=== PATIENT | female | born 1940 | race Caucasian/White ===

== ENCOUNTER 2016-09-25 19:06 | Emergency (ER) | payer OTHER ==
[2016-09-25] MEDS ORDERED: ACETAMINOPH W/CODEINE #3 TAB UD As Ordered ONE ×2 (22:38)
[2016-09-25 22:56] LABS: BASO % 0.4 % (0.0-1.0); EOS # 0.1 K/mm3 (0.0-0.50); EOS % 1.2 % (0.0-3.0); LARGE UNSTAINED CELL # 0.1 K/mm3 (0.0-0.4); LARGE UNSTAINED CELL % 1.3 % (0.0-4.0); LYMPH # 1.9 K/mm3 (1.5-4.5); LYMPH % 30.6 % (24.0-44.0); MEAN CORPUSCULAR HEMOGLOBIN 30.6 pg (27.0-33.0); MEAN CORPUSCULAR HGB CONC 34.8 g/dl (32.0-36.5); MONO # 0.3 K/mm3 (0.0-0.8); NEUTROPHILS # 3.9 K/mm3 (1.8-7.7); NEUTROPHILS % 62.4 % (36.0-66.0); PLATELET COUNT, AUTOMATED 131 k/mm3 (150-450); RED CELL DISTRIBUTION WIDTH 11.9 % (11.5-14.5); WHITE BLOOD COUNT 6.2 K/mm3 (4.0-10.0)
[2016-09-25 23:25] LABS: ANION GAP 9 MEQ/L (8-16); BLOOD UREA NITROGEN 16 MG/DL (7-18); CALCIUM LEVEL 9.6 MG/DL (8.8-10.2); CARBON DIOXIDE LEVEL 25 MEQ/L (21-32); CHLORIDE LEVEL 111 MEQ/L (98-107); CREATININE FOR GFR 0.97 MG/DL (0.55-1.02); GLOMERULAR FILTRATION RATE 59.3 (>39); GLUCOSE, FASTING 89 MG/DL (83-110); POTASSIUM SERUM 3.8 MEQ/L (3.5-5.1); SODIUM LEVEL 145 MEQ/L (136-145)
--- NOTE | 2016-09-25 23:42 | REP ---
Clinical: Pain. Technique: Internal rotation, external rotation, and Y view of the right shoulder. Findings: Spurring at the acromioclavicular joint as well as along the inferior margin of the humeral head is appreciated with subtle cortical irregularities and blunting to the glenoid rim and greater tuberosity of the humeral head. No acute fracture or dislocation. Surrounding soft tissues are normal. No periarticular calcifications are identified. Subacromial space is within normal limits. Impression: Mild osteoarthritic degenerative changes. Signed by Gianfranco Anand MD 09/25/2016 11:34 P
--- NOTE | 2016-09-26 00:15 | EDDOCDS ---
Physician Documentation [facility] Name: Graciela Suarez Age: 76 yrs Sex: Female : 1940 Arrival Date: 09/25/2016 Time: 19:06 Bed Private MD: Johnnie Sanchez Disposition: 09/25/16 23:58 Discharged to Home/Self Care. Impression: Osteoarthritis, unspecified site - RIGHT SHOULDER, Unspecified injury of muscle and tendon of front wall of thorax. - Condition is Stable. - Discharge Instructions: Arthritis, Nonspecific, Muscle Strain. - Prescriptions for Tylenol- Codeine #3 300-30 mg Oral Tablet - take 1 tablet by ORAL route every 6 hours As needed MDD: 4 tabs; 10 tablet. - Medication Reconciliation, Local Pharmacy Hours form. - Follow up: Johnnie Sanchez; When: Tomorrow; Reason: Recheck today's complaints, Continuance of care. - Problem is new. - Symptoms have improved. - Notes: USE MEDICATION INSTRUTCED, FOLLOW UP WITH YOUR DOCTOR TOMORROW, RETURN TO THE ER IF THE SYMPTOMS WORSEN OR BECOME CONCERNING Historical: - Allergies: no known allergies; - Home Meds: 1. aspirin 81 mg Oral chew 1 tab once daily 2. atorvastatin 10 mg oral tab 1 tab once daily 3. buspirone 10 mg Oral tab 3 times per day 4. clonazepam 0.5 mg Oral TbDL 1 tab 2 times per day 5. donepezil 10 mg oral tab 2 tab once daily 6. levothyroxine 75 mcg Oral tab once daily 7. memantine 5 mg oral tab three times a day 8. montelukast 10 mg oral tab 1 tab once daily - PMHx: Depression; Thyroid problem; - PSHx: Adenoidectomy; Hammer toe repair left foot; Tonsillectomy; Bunion Surgery; - Social history: Smoking status: Patient states was never smoker of tobacco. No barriers to communication noted, The patient speaks fluent Korean. - Family history: Not pertinent. - : The pt / caregiver states he / she is not on anticoagulants. Home medication list is obtained from the patient. - Exposure Risk Screening:: None identified. Vital Signs: 09/25 19:09 BP 129 / 74; Pulse 64; Resp 18 S; Pulse Ox 99% on R/A; Weight 63.5 kg / 139.99 lbs (R); gr2 Height 5 ft. 1 in. (154.94 cm) (R); Pain 7/10; 09/26 00:12 BP 126 / 71; Pulse 62; Resp 22; Temp 97.0(O); Pulse Ox 97% on R/A; Pain 0/10; rw1 09/25 19:09 Body Mass Index 26.45 (63.50 kg, 154.94 cm) gr2 09/25 19:09 UNABLE TO GET A TEMP gr2 MDM: 22:11 [facility] Payment Agreement was scanned into [employer] and attached to record. gjb 22:11 Financial registration complete. gjb 22:16 ECG WITH READING ER PHYS+CARDIAG ordered. EDMS 22:37 Acetaminophen-Codeine 300 mg-30 mg 2 tabs PO once ordered. ck7 22:38 Shoulder, Complete Ordered. EDMS 22:40 CBC with Diff Ordered. EDMS 22:40 MED Profile Ordered. EDMS 22:40 Cardiac Marker Panel Ordered. EDMS 23:27 CBC with Diff Reviewed. ck7 23:27 MED Profile Reviewed. ck7 23:28 Cardiac Marker Panel Reviewed. ck7 23:31 MED Profile Reviewed. ck7 23:31 Cardiac Marker Panel Reviewed. ck7 Administered Medications: 22:41 Drug: Acetaminophen-Codeine 2 tabs [acetaminophen 300 mg-codeine 30 mg tablet (2 tabs)] ttb Route: PO; 09/26 00:12 Follow up: Response: Pain is decreased rw1 Signatures: Dispatcher [employer] EDMS Peterson Starr LPN LPN rw1 Kandice Aly RN RN rs3 Long Lozano RPA-C RPA-Cck7 Nicole Rg gjb Helene Guthrie RN ttb The chart was reviewed and I authenticate all verbal orders and agree with the evaluation and treatment provided.Attachments: 09/25 22:11 [facility] Payment Agreement gjb MTDD
--- NOTE | 2016-09-26 00:15 | EDDOCDS ---
Nurse's Notes [facility] Name: Graciela Suarez Age: 76 yrs Sex: Female : 1940 Arrival Date: 09/25/2016 Time: 19:06 Bed PR Private MD: Johnnie Sanchez Diagnosis: Osteoarthritis, unspecified site-RIGHT SHOULDER;Unspecified injury of muscle and tendon of front wall of thorax Presentation: 09/25 19:20 Presenting complaint: Patient states: Right shoulder/arm pain 5 months. right breast rs3 pain since this morning. unable to lift R arm. Adult Sepsis Screening: The patient does not have new or worsening altered mentation. Patient's respiratory rate is less than 22. Systolic blood pressure is greater than 100. Patient has a qSOFA score of 0- Negative Sepsis Screen. Suicide/Homicide risk assessment- the patient denies having any suicidal and/or homicidal ideations and does not present with any other emotional, behavioral or mental health complaints. 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 Transition of care: patient was not received from another setting of care. 19:20 Acuity: HENRY Level 4 rs3 19:20 Method Of Arrival: Walkin/Carried/Asstd rs3 Triage Assessment: 19:24 General: Appears in no apparent distress. Pain: Location: anterior aspect of right rs3 upper chest, right lateral posterior chest and right breast. Historical: - Allergies: no known allergies; - Home Meds: 1. aspirin 81 mg Oral chew 1 tab once daily 2. atorvastatin 10 mg oral tab 1 tab once daily 3. buspirone 10 mg Oral tab 3 times per day 4. clonazepam 0.5 mg Oral TbDL 1 tab 2 times per day 5. donepezil 10 mg oral tab 2 tab once daily 6. levothyroxine 75 mcg Oral tab once daily 7. memantine 5 mg oral tab three times a day 8. montelukast 10 mg oral tab 1 tab once daily - PMHx: Depression; Thyroid problem; - PSHx: Adenoidectomy; Hammer toe repair left foot; Tonsillectomy; Bunion Surgery; - Social history: Smoking status: Patient states was never smoker of tobacco. No barriers to communication noted, The patient speaks fluent Belgian. - Family history: Not pertinent. - : The pt / caregiver states he / she is not on anticoagulants. Home medication list is obtained from the patient. - Exposure Risk Screening:: None identified. Assessment: 09/26 00:12 Reassessment: Patient appears in no apparent distress at this time. Patient denies pain rw1 at this time. Patient states feeling better. Patient states symptoms have improved. Vital Signs: 09/25 19:09 BP 129 / 74; Pulse 64; Resp 18 S; Pulse Ox 99% on R/A; Weight 63.5 kg (R); Height 5 ft. gr2 1 in. (154.94 cm) (R); Pain 7/10; 09/26 00:12 BP 126 / 71; Pulse 62; Resp 22; Temp 97.0(O); Pulse Ox 97% on R/A; Pain 0/10; rw1 09/25 19:09 Body Mass Index 26.45 (63.50 kg, 154.94 cm) gr2 09/25 19:09 UNABLE TO GET A TEMP gr2 Vitals: 19:09 Log In Time: September 25, 2016 at 19:09. gr2 ED Course: 19:08 Patient visited by Sj Licea. gr2 19:08 Patient moved to Waiting gr2 19:09 Johnnie Sanchez is Private Physician. gr2 19:13 Patient visited by Sj Licea. gr2 19:13 Patient moved to Pre RCE gr2 19:22 Triage Initiated rs3 21:12 Patient moved to Triage 2 mdr 22:02 Long L[facility]ano [facility]C [facility]. ck7 22:02 Swapnil Rooney MD is Attending Physician. ck7 22:02 Patient visited by Long Lozano RPA-C. ck7 22:11 [facility] Payment Agreement was scanned into [employer] and attached to record. gjb 22:15 Patient name changed from Graciela\S\Delphine\S\Vincent\S\ to Graciela\S\B\S\Vincent. EDMS 22:30 Patient visited by Gary Moser PCA. mdr 22:30 EKG done. (by ED staff). Reviewed by Swapnil Rooney MD. mdr 22:47 Patient moved to TR1 km 22:48 Cardiac Marker Panel Sent. ttb 22:48 MED Profile Sent. ttb 22:48 CBC with Diff Sent. ttb 23:01 Patient visited by Long Lozano RPA-C. ck7 23:27 Patient visited by Long Lozano RPA-C. ck7 23:46 Patient moved to rw1 23:57 Johnnie Sanchez is Referral Physician. ck7 09/26 00:12 The patient / caregiver is instructed regarding the plan of care and ED course. rw1 00:12 No IV's were initiated during this patient's visit. No procedures done that require rw1 assistance. Administered Medications: 09/25 22:41 Drug: Acetaminophen-Codeine 2 tabs [acetaminophen 300 mg-codeine 30 mg tablet (2 tabs)] ttb Route: PO; 09/26 00:12 Follow up: Response: Pain is decreased rw1 Order Results: Lab Order: CBC with Diff; SPEC'M 09/25/16 22:42 Test: WHITE BLOOD COUNT; Value: 6.2; Range: 4.0-10.0; Units: K/mm3; Status: F Test: RED BLOOD COUNT; Value: 5.06; Range: 4.00-5.40; Units: M/mm3; Status: F Test: HEMOGLOBIN; Value: 15.5; Range: 12.0-16.0; Units: g/dl; Status: F Test: HEMATOCRIT; Value: 44.6; Range: 36.0-47.0; Units: %; Status: F Test: MEAN CORPUSCULAR VOLUME; Value: 88.0; Range: 80.0-96.0; Units: fl; Status: F Test: MEAN CORPUSCULAR HEMOGLOBIN; Value: 30.6; Range: 27.0-33.0; Units: pg; Status: F Test: MEAN CORPUSCULAR HGB CONC; Value: 34.8; Range: 32.0-36.5; Units: g/dl; Status: F Test: RED CELL DISTRIBUTION WIDTH; Value: 11.9; Range: 11.5-14.5; Units: %; Status: F Test: PLATELET COUNT, AUTOMATED; Value: 131; Range: 150-450; Abnormal: Below low normal; Units: k/mm3; Status: F Test: NEUTROPHILS %; Value: 62.4; Range: 36.0-66.0; Units: %; Status: F Test: LYMPH %; Value: 30.6; Range: 24.0-44.0; Units: %; Status: F Test: MONO %; Value: 4.0; Range: 0.0-5.0; Units: %; Status: F Test: EOS %; Value: 1.2; Range: 0.0-3.0; Units: %; Status: F Test: BASO %; Value: 0.4; Range: 0.0-1.0; Units: %; Status: F Test: LARGE UNSTAINED CELL %; Value: 1.3; Range: 0.0-4.0; Units: %; Status: F Test: NEUTROPHILS #; Value: 3.9; Range: 1.8-7.7; Units: K/mm3; Status: F Test: LYMPH #; Value: 1.9; Range: 1.5-4.5; Units: K/mm3; Status: F Test: MONO #; Value: 0.3; Range: 0.0-0.8; Units: K/mm3; Status: F Test: EOS #; Value: 0.1; Range: 0.0-0.50; Units: K/mm3; Status: F Test: BASO #; Value: 0.0; Range: 0.0-0.2; Units: K/mm3; Status: F Test: LARGE UNSTAINED CELL #; Value: 0.1; Range: 0.0-0.4; Units: K/mm3; Status: F Lab Order: [facility]; SPEC'M 09/25/16 22:42 Test: GLUCOSE, FASTING; Value: 89; Range: 83-110; Units: MG/DL; Status: F Test: BLOOD UREA NITROGEN; Value: 16; Range: 7-18; Units: MG/DL; Status: F Test: CREATININE FOR GFR; Value: 0.97; Range: 0.55-1.02; Units: MG/DL; Status: F Test: GLOMERULAR FILTRATION RATE; Value: 59.3; Range: >39; Status: F Test: SODIUM LEVEL; Value: 145; Range: 136-145; Units: MEQ/L; Status: F Test: POTASSIUM SERUM; Value: 3.8; Range: 3.5-5.1; Units: MEQ/L; Status: F Test: CHLORIDE LEVEL; Value: 111; Range: 98-107; Abnormal: Above high normal; Units: MEQ/L; Status: F Test: CARBON DIOXIDE LEVEL; Value: 25; Range: 21-32; Units: MEQ/L; Status: F Test: ANION GAP; Value: 9; Range: 8-16; Units: MEQ/L; Status: F Test: CALCIUM LEVEL; Value: 9.6; Range: 8.8-10.2; Units: MG/DL; Status: F Test Note: ; Units are mL/min/1.73 m2 Chronic Kidney Disease Staging per NKF: Stage I & II GFR >=60 Normal to Mildly Decreased Stage III GFR 30-59 Moderately Decreased Stage IV GFR 15-29 Severely Decreased Stage V GFR <15 Very Little GFR Left ESRD GFR <15 on MECHANIC'S ASSISTANT Lab Order: Cardiac Marker Panel; SPEC'M 09/25/16 22:42 Test: CPK CREATINE PHOSPHOKINASE; Value: 69; Range: 26-192; Units: U/L; Status: F Test: CK-MB VALUE MASS; Value: 1.0; Range: 0.0-3.6; Units: NG/ML; Status: F Test: MB/CK RELATIVE INDEX; Value: 1.44; Range: < OR =4; Status: F Test: TROPONIN I; Value: < 0.02; Range: < 0.10; Units: NG/ML; Status: F Test Note: ; DIAGNOSIS CRITERIA MMB ng/ml Relative Index (RI) NON-AMI < or = 5 N/A [place] ZONE > 5 < or = 4 AMI > 5 > 4 Outcome: 09/25 23:58 Discharge ordered by Provider. ck7 09/26 00:12 Discharge Assessment: Patient awake, alert and oriented x 3. No cognitive and/or rw1 functional deficits noted. Patient verbalized understanding of disposition instructions. patient administered narcotics - yes. Pt provided with safe discharge. The following High Risk Discharge criteria are identified: None. Discharged to home ambulatory, with family. Condition: stable Condition: improved. Discharge instructions given to patient, Instructed on discharge instructions, follow up and referral plans. medication usage, no driving heavy equipment, Demonstrated understanding of instructions, medications, Pt was receptive of discharge instructions/ teaching. Prescriptions given X 1. No special radiology studies were completed. Property sent home with patient. 00:13 Patient left the ED. rw1 Signatures: Dispatcher [employer] EDMS Mami Muhammad, RN RN kmg1 Peterson Starr LPN LPN rw1 Kandice Aly,RN RN rs3 Long Lozano, RPA-C RPA-Cck7 Helene Guthrie RN RN ttb Sj Licea gr2 Gary Moser, BUILDING TECH BUILDING TECH Nicole Tena MTDD
--- NOTE | 2016-09-26 07:27 | ECGEPIP ---
Stationary ECG Study [facility] - ED Test Date: 2016-09-25 Pat Name: ELIAS SLATER Department: Room: - Gender: F Arc Welder: : 1940 Requested By: Long Lam PA-C Order Number: [id number] Reading MD: Yudith Mason Measurements Intervals [place] Rate: 56 P: -49 WV: 186 QRS: 5 QRSD: 141 T: 93 QT: 537 QTc: 520 Interpretive Statements SINUS BRADYCARDIA LEFT BUNDLE BRANCH BLOCK INCREASED RATE 02/23/14 Electronically Signed On 09-26-2016 7:27:28 EST by Yudith Mason
--- NOTE | 2016-09-28 01:14 | EDDOCDS ---
Physician Documentation [facility] Name: Graciela Suarez Age: 76 yrs Sex: Female : 1940 Arrival Date: 09/25/2016 Time: 19:06 Bed Private MD: Johnnie Sanchez Disposition: 09/25/16 23:58 Discharged to Home/Self Care. Impression: Osteoarthritis, unspecified site - RIGHT SHOULDER, Unspecified injury of muscle and tendon of front wall of thorax. - Condition is Stable. - Discharge Instructions: Arthritis, Nonspecific, Muscle Strain. - Prescriptions for Tylenol- Codeine #3 300-30 mg Oral Tablet - take 1 tablet by ORAL route every 6 hours As needed MDD: 4 tabs; 10 tablet. - Medication Reconciliation, Local Pharmacy Hours form. - Follow up: Johnnie Sanchez; When: Tomorrow; Reason: Recheck today's complaints, Continuance of care. - Problem is new. - Symptoms have improved. - Notes: USE MEDICATION INSTRUTCED, FOLLOW UP WITH YOUR DOCTOR TOMORROW, RETURN TO THE ER IF THE SYMPTOMS WORSEN OR BECOME CONCERNING Historical: - Allergies: no known allergies; - Home Meds: 1. aspirin 81 mg Oral chew 1 tab once daily 2. atorvastatin 10 mg oral tab 1 tab once daily 3. buspirone 10 mg Oral tab 3 times per day 4. clonazepam 0.5 mg Oral TbDL 1 tab 2 times per day 5. donepezil 10 mg oral tab 2 tab once daily 6. levothyroxine 75 mcg Oral tab once daily 7. memantine 5 mg oral tab three times a day 8. montelukast 10 mg oral tab 1 tab once daily - PMHx: Depression; Thyroid problem; - PSHx: Adenoidectomy; Hammer toe repair left foot; Tonsillectomy; Bunion Surgery; - Social history: Smoking status: Patient states was never smoker of tobacco. No barriers to communication noted, The patient speaks fluent Wolof. - Family history: Not pertinent. - : The pt / caregiver states he / she is not on anticoagulants. Home medication list is obtained from the patient. - Exposure Risk Screening:: None identified. Vital Signs: 09/25 19:09 BP 129 / 74; Pulse 64; Resp 18 S; Pulse Ox 99% on R/A; Weight 63.5 kg / 139.99 lbs (R); gr2 Height 5 ft. 1 in. (154.94 cm) (R); Pain 7/10; 09/26 00:12 BP 126 / 71; Pulse 62; Resp 22; Temp 97.0(O); Pulse Ox 97% on R/A; Pain 0/10; rw1 09/25 19:09 Body Mass Index 26.45 (63.50 kg, 154.94 cm) gr2 09/25 19:09 UNABLE TO GET A TEMP gr2 MDM: 22:11 [facility] Payment Agreement was scanned into [employer] and attached to record. gjb 22:11 Financial registration complete. gjb 22:16 ECG WITH READING ER PHYS+CARDIAG ordered. EDMS 22:37 Acetaminophen-Codeine 300 mg-30 mg 2 tabs PO once ordered. ck7 22:38 Shoulder, Complete Ordered. EDMS 22:40 CBC with Diff Ordered. EDMS 22:40 MED Profile Ordered. EDMS 22:40 Cardiac Marker Panel Ordered. EDMS 23:27 CBC with Diff Reviewed. ck7 23:27 MED Profile Reviewed. ck7 23:28 Cardiac Marker Panel Reviewed. ck7 23:31 MED Profile Reviewed. ck7 23:31 Cardiac Marker Panel Reviewed. ck7 09/26 12:43 T-Sheet-- Draft Copy was scanned into [employer] and attached to record. gb 12:43 ECG/EKG was scanned into [employer] and attached to record. gb Administered Medications: 09/25 22:41 Drug: Acetaminophen-Codeine 2 tabs [acetaminophen 300 mg-codeine 30 mg tablet (2 tabs)] ttb Route: PO; 09/26 00:12 Follow up: Response: Pain is decreased rw1 Signatures: Dispatcher [employer] EDMS Joi Sutton, Reg Reg gb Peterson Starr LPN [employer] INFORMATION CLERK rw1 Kandice Aly,RN RN rs3 Long Lozano RPA-C RPA-Imani7 Nicole Rg gjb Helene Guthrie RN ttb The chart was reviewed and I authenticate all verbal orders and agree with the evaluation and treatment provided.Attachments: 09/25 22:11 [facility] Payment Agreement gjb 09/26 12:43 T-Sheet-- Draft Copy gb 12:43 ECG/EKG gb Chart Complete MTDD
--- NOTE | 2016-09-28 01:14 | EDDOCDS ---
Physician Documentation [facility] Name: Graciela Suarez Age: 76 yrs Sex: Female : 1940 Arrival Date: 09/25/2016 Time: 19:06 Bed Private MD: Johnnie Sanchez Disposition: 09/25/16 23:58 Discharged to Home/Self Care. Impression: Osteoarthritis, unspecified site - RIGHT SHOULDER, Unspecified injury of muscle and tendon of front wall of thorax. - Condition is Stable. - Discharge Instructions: Arthritis, Nonspecific, Muscle Strain. - Prescriptions for Tylenol- Codeine #3 300-30 mg Oral Tablet - take 1 tablet by ORAL route every 6 hours As needed MDD: 4 tabs; 10 tablet. - Medication Reconciliation, Local Pharmacy Hours form. - Follow up: Johnnie Sanchez; When: Tomorrow; Reason: Recheck today's complaints, Continuance of care. - Problem is new. - Symptoms have improved. - Notes: USE MEDICATION INSTRUTCED, FOLLOW UP WITH YOUR DOCTOR TOMORROW, RETURN TO THE ER IF THE SYMPTOMS WORSEN OR BECOME CONCERNING Historical: - Allergies: no known allergies; - Home Meds: 1. aspirin 81 mg Oral chew 1 tab once daily 2. atorvastatin 10 mg oral tab 1 tab once daily 3. buspirone 10 mg Oral tab 3 times per day 4. clonazepam 0.5 mg Oral TbDL 1 tab 2 times per day 5. donepezil 10 mg oral tab 2 tab once daily 6. levothyroxine 75 mcg Oral tab once daily 7. memantine 5 mg oral tab three times a day 8. montelukast 10 mg oral tab 1 tab once daily - PMHx: Depression; Thyroid problem; - PSHx: Adenoidectomy; Hammer toe repair left foot; Tonsillectomy; Bunion Surgery; - Social history: Smoking status: Patient states was never smoker of tobacco. No barriers to communication noted, The patient speaks fluent Arabic. - Family history: Not pertinent. - : The pt / caregiver states he / she is not on anticoagulants. Home medication list is obtained from the patient. - Exposure Risk Screening:: None identified. Vital Signs: 09/25 19:09 BP 129 / 74; Pulse 64; Resp 18 S; Pulse Ox 99% on R/A; Weight 63.5 kg / 139.99 lbs (R); gr2 Height 5 ft. 1 in. (154.94 cm) (R); Pain 7/10; 09/26 00:12 BP 126 / 71; Pulse 62; Resp 22; Temp 97.0(O); Pulse Ox 97% on R/A; Pain 0/10; rw1 09/25 19:09 Body Mass Index 26.45 (63.50 kg, 154.94 cm) gr2 09/25 19:09 UNABLE TO GET A TEMP gr2 MDM: 22:11 [facility] Payment Agreement was scanned into [employer] and attached to record. gjb 22:11 Financial registration complete. gjb 22:16 ECG WITH READING ER PHYS+CARDIAG ordered. EDMS 22:37 Acetaminophen-Codeine 300 mg-30 mg 2 tabs PO once ordered. ck7 22:38 Shoulder, Complete Ordered. EDMS 22:40 CBC with Diff Ordered. EDMS 22:40 MED Profile Ordered. EDMS 22:40 Cardiac Marker Panel Ordered. EDMS 23:27 CBC with Diff Reviewed. ck7 23:27 MED Profile Reviewed. ck7 23:28 Cardiac Marker Panel Reviewed. ck7 23:31 MED Profile Reviewed. ck7 23:31 Cardiac Marker Panel Reviewed. ck7 09/26 12:43 T-Sheet-- Draft Copy was scanned into [employer] and attached to record. gb 12:43 ECG/EKG was scanned into [employer] and attached to record. gb Administered Medications: 09/25 22:41 Drug: Acetaminophen-Codeine 2 tabs [acetaminophen 300 mg-codeine 30 mg tablet (2 tabs)] ttb Route: PO; 09/26 00:12 Follow up: Response: Pain is decreased rw1 Signatures: Dispatcher [employer] EDMS Joi Sutton, Reg Reg gb Peterson Starr LPN TELEVISION ANALYZER rw1 Kandice Aly,RN RN rs3 Long Lozano RPA-C RPA-Imani7 Nicole Rg gjb Heleen Guthrie RN ttb The chart was reviewed and I authenticate all verbal orders and agree with the evaluation and treatment provided.Attachments: 09/25 22:11 [facility] Payment Agreement gjb 09/26 12:43 T-Sheet-- Draft Copy gb 12:43 ECG/EKG gb Chart Complete MTDD
--- NOTE | 2016-09-28 01:15 | EDDOCDS ---
Nurse's Notes [facility] Name: Graciela Suarez Age: 76 yrs Sex: Female : 1940 Arrival Date: 09/25/2016 Time: 19:06 Bed PR Private MD: Johnnie Sanchez Diagnosis: Osteoarthritis, unspecified site-RIGHT SHOULDER;Unspecified injury of muscle and tendon of front wall of thorax Presentation: 09/25 19:20 Presenting complaint: Patient states: Right shoulder/arm pain 5 months. right breast rs3 pain since this morning. unable to lift R arm. Adult Sepsis Screening: The patient does not have new or worsening altered mentation. Patient's respiratory rate is less than 22. Systolic blood pressure is greater than 100. Patient has a qSOFA score of 0- Negative Sepsis Screen. Suicide/Homicide risk assessment- the patient denies having any suicidal and/or homicidal ideations and does not present with any other emotional, behavioral or mental health complaints. Status: Patient is not a ambulatory service representative or dependent. Transition of care: patient was not received from another setting of care. 19:20 Acuity: HENRY Level 4 rs3 19:20 Method Of Arrival: Walkin/Carried/Asstd rs3 Triage Assessment: 19:24 General: Appears in no apparent distress. Pain: Location: anterior aspect of right rs3 upper chest, right lateral posterior chest and right breast. Historical: - Allergies: no known allergies; - Home Meds: 1. aspirin 81 mg Oral chew 1 tab once daily 2. atorvastatin 10 mg oral tab 1 tab once daily 3. buspirone 10 mg Oral tab 3 times per day 4. clonazepam 0.5 mg Oral TbDL 1 tab 2 times per day 5. donepezil 10 mg oral tab 2 tab once daily 6. levothyroxine 75 mcg Oral tab once daily 7. memantine 5 mg oral tab three times a day 8. montelukast 10 mg oral tab 1 tab once daily - PMHx: Depression; Thyroid problem; - PSHx: Adenoidectomy; Hammer toe repair left foot; Tonsillectomy; Bunion Surgery; - Social history: Smoking status: Patient states was never smoker of tobacco. No barriers to communication noted, The patient speaks fluent Latvian. - Family history: Not pertinent. - : The pt / caregiver states he / she is not on anticoagulants. Home medication list is obtained from the patient. - Exposure Risk Screening:: None identified. Assessment: 09/26 00:12 Reassessment: Patient appears in no apparent distress at this time. Patient denies pain rw1 at this time. Patient states feeling better. Patient states symptoms have improved. Vital Signs: 09/25 19:09 BP 129 / 74; Pulse 64; Resp 18 S; Pulse Ox 99% on R/A; Weight 63.5 kg (R); Height 5 ft. gr2 1 in. (154.94 cm) (R); Pain 7/10; 09/26 00:12 BP 126 / 71; Pulse 62; Resp 22; Temp 97.0(O); Pulse Ox 97% on R/A; Pain 0/10; rw1 09/25 19:09 Body Mass Index 26.45 (63.50 kg, 154.94 cm) gr2 09/25 19:09 UNABLE TO GET A TEMP gr2 Vitals: 19:09 Log In Time: September 25, 2016 at 19:09. gr2 ED Course: 19:08 Patient visited by Sj Licea. gr2 19:08 Patient moved to Waiting gr2 19:09 Johnnie Sanchez is Private Physician. gr2 19:13 Patient visited by Sj Licea. gr2 19:13 Patient moved to Pre RCE gr2 19:22 Triage Initiated rs3 21:12 Patient moved to Triage 2 mdr 22:02 Long Lozano RPA-C [facility]. ck7 22:02 Swapnil Rooney MD is Attending Physician. ck7 22:02 Patient visited by Long Lozano RPA-C. ck7 22:11 [facility] Payment Agreement was scanned into [employer] and attached to record. gjb 22:15 Patient name changed from Graciela\S\Delphine\S\Vincent\S\ to Graciela\S\B\S\Vincent. EDMS 22:30 Patient visited by Gary Moser PCA. mdr 22:30 EKG done. (by ED staff). Reviewed by Swapnil Rooney MD. mdr 22:47 Patient moved to TR1 km 22:48 Cardiac Marker Panel Sent. ttb 22:48 MED Profile Sent. ttb 22:48 CBC with Diff Sent. ttb 23:01 Patient visited by Long Lozano RPA-C. ck7 23:27 Patient visited by Long Lozano RPA-C. ck7 23:46 Patient moved to rw1 23:57 Johnnie Sanchez is Referral Physician. ck7 09/26 00:12 The patient / caregiver is instructed regarding the plan of care and ED course. rw1 00:12 No IV's were initiated during this patient's visit. No procedures done that require rw1 assistance. 00:18 Shoulder, Complete Returned. EDMS 07:36 EKG-ADULT Returned. EDMS 12:43 T-Sheet-- Draft Copy was scanned into [employer] and attached to record. gb 12:43 ECG/EKG was scanned into [employer] and attached to record. gb Administered Medications: 09/25 22:41 Drug: Acetaminophen-Codeine 2 tabs [acetaminophen 300 mg-codeine 30 mg tablet (2 tabs)] ttb Route: PO; 09/26 00:12 Follow up: Response: Pain is decreased rw1 Order Results: Lab Order: CBC with Diff; SPEC'M 09/25/16 22:42 Test: WHITE BLOOD COUNT; Value: 6.2; Range: 4.0-10.0; Units: K/mm3; Status: F Test: RED BLOOD COUNT; Value: 5.06; Range: 4.00-5.40; Units: M/mm3; Status: F Test: HEMOGLOBIN; Value: 15.5; Range: 12.0-16.0; Units: g/dl; Status: F Test: HEMATOCRIT; Value: 44.6; Range: 36.0-47.0; Units: %; Status: F Test: MEAN CORPUSCULAR VOLUME; Value: 88.0; Range: 80.0-96.0; Units: fl; Status: F Test: MEAN CORPUSCULAR HEMOGLOBIN; Value: 30.6; Range: 27.0-33.0; Units: pg; Status: F Test: MEAN CORPUSCULAR HGB CONC; Value: 34.8; Range: 32.0-36.5; Units: g/dl; Status: F Test: RED CELL DISTRIBUTION WIDTH; Value: 11.9; Range: 11.5-14.5; Units: %; Status: F Test: PLATELET COUNT, AUTOMATED; Value: 131; Range: 150-450; Abnormal: Below low normal; Units: k/mm3; Status: F Test: NEUTROPHILS %; Value: 62.4; Range: 36.0-66.0; Units: %; Status: F Test: LYMPH %; Value: 30.6; Range: 24.0-44.0; Units: %; Status: F Test: MONO %; Value: 4.0; Range: 0.0-5.0; Units: %; Status: F Test: EOS %; Value: 1.2; Range: 0.0-3.0; Units: %; Status: F Test: BASO %; Value: 0.4; Range: 0.0-1.0; Units: %; Status: F Test: LARGE UNSTAINED CELL %; Value: 1.3; Range: 0.0-4.0; Units: %; Status: F Test: NEUTROPHILS #; Value: 3.9; Range: 1.8-7.7; Units: K/mm3; Status: F Test: LYMPH #; Value: 1.9; Range: 1.5-4.5; Units: K/mm3; Status: F Test: MONO #; Value: 0.3; Range: 0.0-0.8; Units: K/mm3; Status: F Test: EOS #; Value: 0.1; Range: 0.0-0.50; Units: K/mm3; Status: F Test: BASO #; Value: 0.0; Range: 0.0-0.2; Units: K/mm3; Status: F Test: LARGE UNSTAINED CELL #; Value: 0.1; Range: 0.0-0.4; Units: K/mm3; Status: F Lab Order: MED Profile; SPEC'M 09/25/16 22:42 Test: GLUCOSE, FASTING; Value: 89; Range: 83-110; Units: MG/DL; Status: F Test: BLOOD UREA NITROGEN; Value: 16; Range: 7-18; Units: MG/DL; Status: F Test: CREATININE FOR GFR; Value: 0.97; Range: 0.55-1.02; Units: MG/DL; Status: F Test: GLOMERULAR FILTRATION RATE; Value: 59.3; Range: >39; Status: F Test: SODIUM LEVEL; Value: 145; Range: 136-145; Units: MEQ/L; Status: F Test: POTASSIUM SERUM; Value: 3.8; Range: 3.5-5.1; Units: MEQ/L; Status: F Test: CHLORIDE LEVEL; Value: 111; Range: 98-107; Abnormal: Above high normal; Units: MEQ/L; Status: F Test: CARBON DIOXIDE LEVEL; Value: 25; Range: 21-32; Units: MEQ/L; Status: F Test: ANION GAP; Value: 9; Range: 8-16; Units: MEQ/L; Status: F Test: CALCIUM LEVEL; Value: 9.6; Range: 8.8-10.2; Units: MG/DL; Status: F Test Note: ; Units are mL/min/1.73 m2 Chronic Kidney Disease Staging per NKF: Stage I & II GFR >=60 Normal to Mildly Decreased Stage III GFR 30-59 Moderately Decreased Stage IV GFR 15-29 Severely Decreased Stage V GFR <15 Very Little GFR Left ESRD GFR <15 on MACHINE SHOP REPAIR TECHNICIAN Lab Order: Cardiac Marker Panel; SPEC'M 09/25/16 22:42 Test: CPK CREATINE PHOSPHOKINASE; Value: 69; Range: 26-192; Units: U/L; Status: F Test: CK-MB VALUE MASS; Value: 1.0; Range: 0.0-3.6; Units: NG/ML; Status: F Test: MB/CK RELATIVE INDEX; Value: 1.44; Range: < OR =4; Status: F Test: TROPONIN I; Value: < 0.02; Range: < 0.10; Units: NG/ML; Status: F Test Note: ; DIAGNOSIS CRITERIA MMB ng/ml Relative Index (RI) NON-AMI < or = 5 N/A TOWNSEND ZONE > 5 < or = 4 AMI > 5 > 4 Radiology Order: EKG-ADULT Test: EKG-ADULT REASON FOR EXAMINATION: Chest Pain; Stationary ECG Study; [facility] - ED; ; Test Date: 2016-09-25; Pat Name: GRACIELA SUAREZ Department:; Room: -; Gender: F Financial Services Intern: ; : 1940 Requested By: Long Whitaker PA-C; Order Number: [id number] Reading MD: Yudith Mason; Measurements; Intervals [place]; Rate: 56 P: -49; PA: 186 QRS: 5; QRSD: 141 T: 93; QT: 537; QTc: 520; Interpretive Statements; SINUS BRADYCARDIA; LEFT BUNDLE BRANCH BLOCK; INCREASED RATE 02/23/14; Electronically Signed On 09-26-2016 7:27:28 EST by Yudith Mason; Radiology Order: Shoulder, Complete Test: Shoulder, Complete REASON FOR EXAMINATION: RIGHT SHOULDER PAIN; Clinical: Pain.; ; Technique: Internal rotation, external rotation, and Y view of the right; shoulder.; ; Findings:; Spurring at the acromioclavicular joint as well as along the inferior margin of; the humeral head is appreciated with subtle cortical irregularities and blunting; to the glenoid rim and greater tuberosity of the humeral head. No acute fracture; or dislocation. Surrounding soft tissues are normal. No periarticular; calcifications are identified. Subacromial space is within normal limits.; ; Impression:; Mild osteoarthritic degenerative changes.; ; ; Signed by; Gianfranco Anand MD 09/25/2016 11:34 P; Outcome: 09/25 23:58 Discharge ordered by Provider. ck7 09/26 00:12 Discharge Assessment: Patient awake, alert and oriented x 3. No cognitive and/or rw1 functional deficits noted. Patient verbalized understanding of disposition instructions. patient administered narcotics - yes. Pt provided with safe discharge. The following High Risk Discharge criteria are identified: None. Discharged to home ambulatory, with family. Condition: stable Condition: improved. Discharge instructions given to patient, Instructed on discharge instructions, follow up and referral plans. medication usage, no driving heavy equipment, Demonstrated understanding of instructions, medications, Pt was receptive of discharge instructions/ teaching. Prescriptions given X 1. No special radiology studies were completed. Property sent home with patient. 00:13 Patient left the ED. rw1 Signatures: Dispatcher [employer] EDMS Mami Muhammad RN RN [id number] Joi Sutton, Reg Reg gb Peterson Starr LPN LPN rw1 Kandice Aly RN RN rs3 Long Lozano, RPA-C RPA-Cck7 Helene Guthrie, RN RN ttb Sj Licea gr2 Gary Moser, HOUSE MOVER SUPERVISOR HOUSE MOVER SUPERVISOR mdr Arcenio, Nicole weinstein Chart Complete MTDD
== END 2016-09-26 00:13 | disposition home or self-care (01) ==
LOC: M ED 19:06
DX: M19.011 Primary osteoarthritis, right shoulder (principal); R07.89 Other chest pain; F32.9 Major depressive disorder, single episode, unspecified; E07.9 Disorder of thyroid, unspecified; Z79.82 Long term (current) use of aspirin; Z79.899 Other long term (current) drug therapy

== ENCOUNTER 2016-11-14 15:39 | Inpatient (IN) | payer OTHER ==
[~2016-11-14] VITALS: Ht 154.9 cm; Wt 58.5 kg
[2016-11-14] MEDS ORDERED: BENZ100C5 PO (16:08)
[2016-11-14] MEDS ORDERED: LEVO75TA4 PO (16:08)
[2016-11-14] MEDS ORDERED: CLON1TAB PO (16:08)
[2016-11-14] MEDS ORDERED: DONETAB6 PO (16:08)
[2016-11-14] MEDS ORDERED: CLAR10CA3 PO (16:08)
[2016-11-14] MEDS ORDERED: SING5CHW23 PO (16:08)
[2016-11-14] MEDS ORDERED: AZIT250T3 PO (16:08)
[2016-11-14] MEDS ORDERED: NAME5TAB13 PO (16:08)
[2016-11-14] MEDS ORDERED: ASPI81TA85 PO (16:08)
[2016-11-14] MEDS ORDERED: ATOR1TAB19 PO (16:08)
[2016-11-14] MEDS ORDERED: BUSP10TA PO (16:08)
[2016-11-14] MEDS ORDERED: ONDANSETRON 4MG/2ML VIAL (J2405) IV ONE (18:30)
--- NOTE | 2016-11-14 19:09 | REP ---
CHEST, TWO VIEWS: HISTORY: Dyspnea. COMPARISON: 02/22/2014. FINDINGS: The superior mediastinal structures are midline. The cardiac silhouette is unremarkable in size, shape, and position. The diaphragmatic surfaces of the lungs are regular, and the costophrenic angles are clear. The pulmonary calvin are clear. The imaged osseous structures are intact. No change from the prior exam. IMPRESSION: There is no acute cardiopulmonary disease. Signed by Kyle Gruber DO 11/14/2016 07:18 P
[2016-11-14 19:16] LABS: MEAN CORPUSCULAR HEMOGLOBIN 30.8 pg (27.0-33.0); MEAN CORPUSCULAR HGB CONC 35.5 g/dl (32.0-36.5); MEAN CORPUSCULAR VOLUME 86.8 fl (80.0-96.0); RED CELL DISTRIBUTION WIDTH 12.1 % (11.5-14.5); WHITE BLOOD COUNT 5.1 K/mm3 (4.0-10.0)
[2016-11-14 19:26] LABS: ALBUMIN 4.1 GM/DL (3.2-5.2); ALBUMIN/GLOBULIN RATIO 1.46 (1.00-1.93); ALKALINE PHOSPHATASE 88 U/L (45-117); ALT/SGPT 30 U/L (12-78); ANION GAP 11 MEQ/L (8-16); AST/SGOT 28 U/L (15-37); BLOOD UREA NITROGEN 15 MG/DL (7-18); CALCIUM LEVEL 8.6 MG/DL (8.8-10.2); CARBON DIOXIDE LEVEL 22 MEQ/L (21-32); CHLORIDE LEVEL 104 MEQ/L (98-107); CREATININE FOR GFR 0.85 MG/DL (0.55-1.02); GLOMERULAR FILTRATION RATE > 60.0 (>39); GLUCOSE, FASTING 84 MG/DL (83-110); POTASSIUM SERUM 2.9 MEQ/L (3.5-5.1); SODIUM LEVEL 137 MEQ/L (136-145); TOTAL PROTEIN 6.9 GM/DL (6.4-8.2)
[2016-11-14] MEDS ORDERED: OSELTAMIVIR PHOSPHATE 75 MG CAP (TAMIFLU) PO ONE (19:45)
[2016-11-14] MEDS ORDERED: KCL 10MEQ IN 100ML SWI (KRUN) 10 MEQ in APPROPRIATE DILUENT 1 EA IV ONE ×2 (20:30)
[2016-11-14] MEDS ORDERED: POTASSIUM CHLORIDE 10 MEQ SR TABLET PO ONE (20:30)
[2016-11-14] MEDS ORDERED: LORA10TA2 PO (21:30)
[2016-11-14] MEDS ORDERED: DONE5TAB17 PO (21:30)
[2016-11-14] MEDS ORDERED: MONT10TA2 PO (21:30)
[2016-11-14] MEDS ORDERED: KCL 10MEQ IN 100ML SWI (KRUN) 10 MEQ in APPROPRIATE DILUENT 1 EA IV SCH ×2 (21:30)
[2016-11-14] MEDS ORDERED: ASPI81TAEC PO (21:30)
[2016-11-14] MEDS ORDERED: FLUT1SPR2 (21:30)
[2016-11-14] MEDS ORDERED: ONDA1TAB15 PO (21:30)
[2016-11-14] MEDS ORDERED: SODIUM CHLORIDE NASAL 0.65% SPRAY BTL (OCEAN) PRN (22:30)
[2016-11-14] MEDS ORDERED: ONDANSETRON 4MG/2ML VIAL (J2405) IV PRN (22:30)
--- NOTE | 2016-11-14 23:11 | HPEPDOC ---
General Date of Admission 11/14/2016 Primary Care Physician: Johnnie Sanchez MD Attending Physician: HANSA LOPEZ MD Chief Complaint The patient is a 76-year-old female admitted with a reason for visit of Diarrhea /Vomiting. Source: Patient, Family, RN notes reviewed, Old records Exam Limitations: No limitations Timing/Duration: Day(s) (symptoms began on Friday) Associated Symptoms: Cough, Nausea, Vomiting, Dizziness History of Present Illness Ms. Suarez is a 76-year-old female who presents to [facility]'s emergency Department with vomiting and diarrhea. She is accompanied in the emergency department by her son. Past medical history significant for Alzheimer's disease, allergic rhinitis, depression / anxiety, hypothyroidism, gastroesophageal reflux disease, dyslipidemia, arthritis, history of rotator cuff injury, hepatic biopsy reported cirrhosis, history of bunions and hammertoes. Patient's symptoms of vomiting and diarrhea with associated nasal and sinus congestion started on Friday. Patient reported to her primary care provider's office and appears to have been treated for a possible upper respiratory tract infection. She was prescribed azithromycin, Claritin, benzoate. Patient's symptoms continued and she experienced 9 episodes of nonbloody vomiting yesterday as well as 10 episodes of nonbloody, nonmucoid, watery diarrhea today. She reports nausea, cough with yellow phlegm production, postnasal drainage, chills, and dizziness. Denies acute changes to vision and/or hearing ( including tinnitus, acute transient hearing loss, acute transient vision loss, blurriness, diplopia), sore throat, abdominal pain, lightheadedness, weakness, musculoskeletal aches and pains. Patient states that she had the flu vaccine. Home Medications Scheduled Aspirin (Aspirin EC) 81 Mg Tabec 81 MG PO DAILY (Reported) Atorvastatin Calcium (Atorvastatin Calcium) 10 Mg Tab 10 MG PO DAILY (Reported ) Azithromycin (Azithromycin) 250 Mg Tab 250 MG PO DAILY (Reported) Buspirone HCl (Buspirone HCl) 10 Mg Tab 10 MG PO TID (Reported) Clonazepam (Clonazepam) 1 Mg Tab 1 MG PO BID (Reported) Donepezil Hydrochloride (Donepezil HCl) 5 Mg Tab 20 MG PO DAILY (Reported) Fluticasone Propionate (Fluticasone Propionate 0.05%) 120 [place]/16 Gm Naspr 2 SPRAY NA BID (Reported) PER NOSTRIL Levothyroxine Sodium (Synthroid) 75 Mcg Tab 75 MCG PO DAILY (Reported) Loratadine (Loratadine) 10 Mg Tab 10 MG PO DAILY (Reported) Memantine (Namenda) 5 Mg Tab 5 MG PO TID (Reported) Montelukast Sodium (Montelukast Sodium) 10 Mg Tab 10 MG PO DAILY (Reported) Scheduled PRN Benzonatate (Benzonatate) 100 Mg Cap 100 MG PO TID PRN PRN COUGH (Reported) Ondansetron HCl (Ondansetron HCl) 4 Mg Tab 4 MG PO Q8H PRN PRN NAUSEA (Reported ) Allergies Coded Allergies: No Known Drug Allergy (Unverified Allergy, Mild, 12/02/12) Past Medical History Medical History 1. Alzheimer's disease 2. Allergic rhinitis 3. Depression /anxiety 4. Hypothyroidism 5. Gastroesophageal reflux disease 6. Dyslipidemia 7. Arthritis 8. History of Rotator cuff injury 9. Hepatic core biopsy report noting cirrhosis 10. History of bunions and hammertoes Surgical History 1. Bunionectomy 2. Hammertoe surgeries 3. Breast core biopsy 4. Cervical biopsy 5. Right distal clavicle resection 6. Rotator cuff repair 7. Hysterectomy 8. Tonsillectomy 9. 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 Denies environmental exposures Denies travel Review of Symptoms Constitutional: Reports: Chills, Denies: Fever, Night Sweats, Weakness Eyes: Reports: Other (denies blurriness, diplopia, transient acute vision loss) ENT: Reports: Head Aches (chronic), Post Nasal Drip, Sinus Congestion, Denies: Epistaxis, Sore Throat Skin: Denies: Lesions, Rash Pulmonary: Reports: Cough (productive of yellow phlegm), Denies: Dyspnea, Pleuritic Chest Pain Cardiovascular: Denies: Chest Pain, Edema, Lt Headedness Gastrointestinal: Reports: Diarrhea (nonbloody, nonmucoid, watery, 10 episodes) , Nausea, Vomiting (nonbloody, 9 episodes), Denies: Abdominal Pain, Constipation, Hematochezia, Melena Genitourinary: Denies: Dysuria, Frequency, Hematuria, Incontinence Hematologic: Denies: Bruising, Petecchia, Purpura Musculoskeletal: Denies: Back Pain, Joint Pain, Muscle Pain, Neck Pain Neurological: Reports: Weakness, Denies: Confusion, Numbness Psych: Reports: Anxiety, Depression Physical Examination General Exam: Positive: Alert, Cooperative, No Acute Distress Eye Exam: Positive: Conjunctiva & lids normal, EOMI, PERRLA, Negative: Sclera icteric ENT Exam: Positive: Atraumatic, Mucous membr. moist/pink, Nares Patent, Other ENT (edentulous), Pharynx Normal, Tongue Midline Neck Exam: Positive: JVD, Supple, Negative: Lymphadenopathy Chest Exam: Positive: Clear to auscultation, Normal air movement Heart Exam: Positive: Murmurs (possible grade 2/6 systolic murmur appreciated best over the second right intercostal), Normal S1, Normal S2, Rate Normal, Regular Rhythm Telemetry: Positive: Sinus Abdomen Exam: Positive: BS Hypoactive, Soft, Negative: Hepatospenomegaly, Tenderness Extremity Exam: Positive: Normal pulses, Other (small healed excoriations noted on the upper extremities bilaterally secondary to picking and scratching ( her son)), Negative: Clubbing, Cyanosis, Edema Skin Exam: Positive: Nl turgor and temperature, Negative: Lesion, Rash Neuro Exam: Positive: Cranial Nerves 3-12 NL, Normal Speech, Strength at 5/5 X4 ext Vital Signs T 97.4 HR 62 BP 137 64 O2 98% on room air Height (in): 61 Weight (kg): 59.874 BMI (kg): 24.9 Laboratory Data Labs 24H Laboratory Tests 2 11/14/16 18:54: Blood Urea Nitrogen 15, Creatinine 0.85, Sodium Level 137, Potassium Level 2.9*L , Chloride Level 104, Carbon Dioxide Level 22, Calcium Level 8.6L, Aspartate Amino Transf (AST/SGOT) 28, Alanine Aminotransferase (ALT/SGPT) 30, Alkaline Phosphatase 88, Total Bilirubin 1.0, Total Protein 6.9, Albumin 4.1, Albumin/ Globulin Ratio 1.46, Anion Gap 11, Glomerular Filtration Rate > 60.0, Lipase 168 CBC/BMP Laboratory Tests 11/14/16 18:54 Calcium Level 8.6 L, Aspartate Amino Transf (AST/SGOT) 28, Alanine Aminotransferase (ALT/SGPT) 30, Alkaline Phosphatase 88, Total Bilirubin 1.0, Total Protein 6.9, Albumin 4.1, Red Blood Count 4.81, Mean Corpuscular Volume 86.8, Mean Corpuscular Hemoglobin 30.8, Mean Corpuscular Hemoglobin Concent 35.5 , Red Cell Distribution Width 12.1 Microbiology Microbiology 11/14/16 Group A Streptococcus Screen (MARICRUZ), Received Pending 11/14/16 Influenza Virus Type A Antigen - Final, Complete 11/14/16 Influenza Virus Type B Antigen - Final, Complete RAD Interpretation STUDY: CXR Rad Actions: Report Reviewed (no acute cardiopulmonary disease) Assessment/Plan This is a 76-year-old female who presented with vomiting and diarrhea noted to be influenza positive. Problems (1) Influenza A Status: Acute Problem Text: Positive influenza A Prescribed Tamiflu Ordered [id number] normal saline at 50 mL per hour Provide symptomatic relief with Mucinex and nasal saline spray (2) Diarrhea Status: Acute Problem Text: Could possibly be related to influenza infection Obtain gastrointestinal panel Nothing by mouth for the time being (3) Nausea & vomiting Status: Acute Problem Text: Could possibly be related to influenza infection Nothing by mouth for the time being Prescribe Zofran D5W half-normal saline at 50 mL per hour (4) Hypokalemia Status: Acute Problem Text: Potassium at time of presentation was 2.9 Replenished Monitor with daily BMP (5) Thrombocytopenia Status: Chronic Problem Text: Patient's platelet count at time of presentation was 96,000 Monitor with daily CBC Plan / VTE VTE Prophylaxis Ordered?: Yes (heparin) Plan Plan Influenza A+ Have prescribed Tamiflu 35 mg twice a day for 5 days (based on patient's reduced kidney function) even though the patient is technically out of the 48 hour window for Tamiflu to be effective. It may still provide some limited relief. We'll provide gentle rehydration with F2L-nhpy normal saline at 50 mL per hour. Patient's white count is normal at 5.1, temperature 97.4. Patient does not seem to be hypoxic and her oxygen saturation is at 98% on room air. Diarrhea Likely secondary to patient's influenza infection. Patient notes no blood in stool and her hemoglobin and hematocrit are 14.8 and 41.7, respectively. We'll obtain a gastrointestinal panel. Will make patient nothing by mouth at this time until results of gastrointestinal panel return and patient's subjective nausea and vomiting have abated. Monitor BMP and vital signs. Nausea and vomiting Have provided Zofran intravenously for nausea. Patient is nothing by mouth for the time being secondary to vomiting. Provided gentle rehydration of Q0A-joud normal saline at 50 mL per hour. Monitor BMP and vital signs. Hypokalemia Patient's potassium at time of presentation was 2.9. Could be likely secondary to vomiting and diarrhea. Have replenished potassium in the emergency department. We'll continue to monitor with BMP. Thrombocytopenia Patient's platelet count was 96,000 and presentation. Look back into her medical record and it appears to be steadily declining since 2008. Patient is currently asymptomatic without rashes or lesions, petechiae, purpura, subjective weakness or muscle aches or pains. We'll continue to monitor with CBC. DVT prophylaxis: Heparin Diet: Nothing by mouth for the time being until gastrointestinal panel returns and patient's nausea and vomiting has abated Disposition Admit to the medical surgical unit Anticipated hospitalization: 2 nights Attending: Dr. Mcknight IVF: Initiate (D5W half normal saline at 50 mL per hour) Diet: Make NPO (currently nothing by mouth secondary to nausea and diarrhea) Activity: Continue Current (encourage ambulation) Diagnostics: Check Labs, Repeat Labs in AM Anticipated Discharge: Home JAJA BERMUDEZ Nov 14, 2016 23:11
[2016-11-15] MEDS: D5W/0.45% SODIUM CHLORIDE 1,000 ML IV SCH ×2 (01:12→18:06)
[2016-11-15] MEDS: FLUTICASONE PROP 0.05% NASAL SPRAY 16 GM (FLONASE) SCH ×3 (01:13→20:24)
[2016-11-15] MEDS: guaiFENesin ER 600 MG TAB PO SCH ×3 (01:13→20:23)
[2016-11-15 04:15] VITALS: BP 145/68
[2016-11-15] MEDS ORDERED: HEPARIN SOD (PORCINE) 5000 UNITS/ML VIAL SQ SCH (06:00)
[2016-11-15] MEDS: LEVOTHYROXINE 0.075 MG TAB (75 MCG) PO SCH (06:09)
[2016-11-15 07:35] LABS: MEAN CORPUSCULAR HEMOGLOBIN 31.3 pg (27.0-33.0); MEAN CORPUSCULAR HGB CONC 35.2 g/dl (32.0-36.5); MEAN CORPUSCULAR VOLUME 88.8 fl (80.0-96.0); RED CELL DISTRIBUTION WIDTH 12.4 % (11.5-14.5); WHITE BLOOD COUNT 3.4 K/mm3 (4.0-10.0)
[2016-11-15 07:49] LABS: ANION GAP 12 MEQ/L (8-16); BLOOD UREA NITROGEN 12 MG/DL (7-18); CALCIUM LEVEL 8.2 MG/DL (8.8-10.2); CARBON DIOXIDE LEVEL 23 MEQ/L (21-32); CHLORIDE LEVEL 107 MEQ/L (98-107); CREATININE FOR GFR 0.67 MG/DL (0.55-1.02); GLOMERULAR FILTRATION RATE > 60.0 (>39); GLUCOSE, FASTING 88 MG/DL (83-110); POTASSIUM SERUM 3.7 MEQ/L (3.5-5.1); SODIUM LEVEL 142 MEQ/L (136-145)
[2016-11-15 08:00] VITALS: BP 142/62
[2016-11-15] MEDS: DONEPEZIL 5 MG TAB PO SCH (08:58)
[2016-11-15] MEDS: OSELTAMIVIR PHOSPHATE 30MG CAPSULE PO SCH ×2 (08:58→20:23)
[2016-11-15] MEDS: LORATADINE 10 MG TAB PO SCH (08:58)
[2016-11-15] MEDS: MEMANTINE 5MG TABLET (NAMENDA) PO SCH ×3 (08:58→20:24)
[2016-11-15] MEDS: busPIRone 10 MG TAB PO SCH ×3 (08:58→20:24)
[2016-11-15] MEDS: ATORVASTATIN 10 MG TAB PO SCH (08:58)
[2016-11-15] MEDS: ASPIRIN 81 MG ENTERIC TAB PO SCH (08:58)
[2016-11-15] MEDS: MONTELUKAST 10 MG TAB PO SCH (08:58)
[2016-11-15] MEDS ORDERED: clonazePAM 1 MG TAB PO SCH (09:00)
[2016-11-15] MEDS: clonazePAM 0.5 MG TAB PO SCH ×2 (09:45→20:23)
[2016-11-15] MEDS ORDERED: LOPERAMIDE 2 MG CAP PO ONE (10:30)
[2016-11-15 11:20] VITALS: BP 116/66
[2016-11-15 14:00] VITALS: BP 120/65
[2016-11-15 22:00] VITALS: BP 123/64
[2016-11-16] MEDS: LEVOTHYROXINE 0.075 MG TAB (75 MCG) PO SCH (05:40)
--- NOTE | 2016-11-16 05:59 | IPN ---
DATE: 11/15/2016 Ms. Suarez is feeling better today. She is still having profuse diarrhea. Breathing is easier. No chest pain. She has been afebrile. She would like to try a diet. Temperature is 95.4, pulse 72, respiratory rate 18, blood pressure 116/66, 93% in room air. Intake and output are net zero at this point with four bowel movements thus far today. She is awake, appropriately interactive, seems to be a good historian. Mucous membranes are moist. Neck is supple. Breathing is symmetrical, IE ratio is 1:3. No wheezes. Heart has a regular rate and rhythm. Abdomen is soft, doughy, hyperactive bowel sounds. White cell count is 3.4, hemoglobin 13.2, and platelets are 81. Platelets due tend to run low although this is the lowest the platelets have been in five years. Sodium is 142, potassium has corrected to 3.7, BUN 12, creatinine 0.6. GI panel is negative. Throat screen for group A Streptococcus is negative. Influenza swab is positive for influenza A. ASSESSMENT: This is a 76-year-old female who presented with cough, nausea, vomiting and dizziness and found to have influenza A, not currently on Tamiflu. PLAN: 1. Influenza A. Will continue contact precaution. Continue IV fluids as needed and Tamiflu. 2. Patient's diarrhea shows no evidence of being related to Clostridium difficile (C. diff) or anything else as noted on the GI panel. I have given her dose of loperamide as a trial. 3. Patient has hypokalemia. Resolved. 4. Patient has thrombocytopenia, which appears to be chronic. We will repeat platelet level tomorrow. At this point, would withhold heparin and give mechanical deep vein thrombosis (DVT) prophylaxis.
[2016-11-16 06:00] VITALS: BP 119/58
[2016-11-16 06:16] LABS: MEAN CORPUSCULAR HEMOGLOBIN 30.9 pg (27.0-33.0); MEAN CORPUSCULAR VOLUME 88.4 fl (80.0-96.0); RED CELL DISTRIBUTION WIDTH 12.3 % (11.5-14.5); WHITE BLOOD COUNT 2.7 K/mm3 (4.0-10.0)
[2016-11-16 06:31] LABS: ANION GAP 9 MEQ/L (8-16); BLOOD UREA NITROGEN 11 MG/DL (7-18); CALCIUM LEVEL 7.3 MG/DL (8.8-10.2); CARBON DIOXIDE LEVEL 25 MEQ/L (21-32); CHLORIDE LEVEL 110 MEQ/L (98-107); CREATININE FOR GFR 0.57 MG/DL (0.55-1.02); GLOMERULAR FILTRATION RATE > 60.0 (>39); GLUCOSE, FASTING 91 MG/DL (83-110); POTASSIUM SERUM 3.4 MEQ/L (3.5-5.1); SODIUM LEVEL 144 MEQ/L (136-145)
[2016-11-16] MEDS: MEMANTINE 5MG TABLET (NAMENDA) PO SCH ×2 (08:59→15:30)
[2016-11-16] MEDS: ATORVASTATIN 10 MG TAB PO SCH (08:59)
[2016-11-16] MEDS: ASPIRIN 81 MG ENTERIC TAB PO SCH (08:59)
[2016-11-16] MEDS: clonazePAM 0.5 MG TAB PO SCH (08:59)
[2016-11-16] MEDS: DONEPEZIL 5 MG TAB PO SCH (08:59)
[2016-11-16] MEDS: MONTELUKAST 10 MG TAB PO SCH (08:59)
[2016-11-16] MEDS: LORATADINE 10 MG TAB PO SCH (08:59)
[2016-11-16] MEDS: OSELTAMIVIR PHOSPHATE 30MG CAPSULE PO SCH (08:59)
[2016-11-16] MEDS: guaiFENesin ER 600 MG TAB PO SCH (08:59)
[2016-11-16] MEDS: busPIRone 10 MG TAB PO SCH ×2 (08:59→15:30)
[2016-11-16] MEDS: FLUTICASONE PROP 0.05% NASAL SPRAY 16 GM (FLONASE) SCH (09:00)
[2016-11-16] MEDS ORDERED: OSEL30CA PO (11:06)
[2016-11-16 14:00] VITALS: BP 118/60
[2016-11-16] MEDS ORDERED: POTASSIUM CHLORIDE 10 MEQ SR TABLET PO ONE (15:00)
--- NOTE | 2016-11-17 18:04 | DSES ---
DATE OF ADMISSION: 11/14/2016 DATE OF DISCHARGE: 11/16/2016 DISCHARGE DIAGNOSIS: Influenza A. SECONDARY DIAGNOSES: 1. Alzheimer's disease. 2. Allergic rhinitis. 3. Depression. 4. Anxiety. 5. Hypothyroidism. 6. Gastroesophageal reflux disease (GERD). 7. Dyslipidemia. 8. Arthritis. 9. Acute diarrhea, nausea and vomiting. 10. Hypokalemia. 11. Thrombocytopenia. SPECIALISTS: No specialists involved in her care. COMPLICATIONS: No complications during her stay. PROCEDURES: No procedures performed during her stay. FINAL SUMMARY OF HER HOSPITALIZATION: This is a 76-year-old who presented with cough, nausea, vomiting, and dizziness. She was found to have influenza A. Stool studies through gastrointestinal (GI) panel were negative. Had marked improvement. She was initially quite weak but on the day of discharge, was ambulated around the entire medical floor with minimal assistance. On the day of discharge, she is feeling well. There are no complaints of pain, chest pain, shortness of breath. Would like to go home. PHYSICAL EXAMINATION: VITAL SIGNS: Temperature 97.8, pulse 60, respiratory rate 18, blood pressure 119/58, 93% on room air. Intake and output notable for positive fluid balance of 1044. Bowel movements on the day prior to discharge: None. RESPIRATORY: On the day of discharge, breathing is symmetrical. I to E ratio is 1:4. Some upper airway sounds are noted with no wheezes. Speaking in complete sentences. No accessory muscle use. HEART: Regular rate and rhythm. ABDOMEN: Soft. Hyperactive bowel sounds. Nontender. LABORATORY DATA: Potassium is 3.4. White cell count is 2.7, hemoglobin is 13, and platelets are 81. Her platelets as far back as 2011, have been generally low. This is a little bit on the lower range for her. Her white cell count has been low previously; in 2013, was 3.4. DISCHARGE INSTRUCTIONS: Followup with Dr. Sanchez within seven days. Activity and diet as tolerated. Continue with: - Tamiflu 30 mg by mouth twice daily for eight more doses - aspirin 81 mg by mouth daily - atorvastatin 10 mg by mouth daily - Tessalon Perles 100 mg three times a day as needed for cough - BuSpar 10 mg by mouth three times a day - clonazepam 1 mg by mouth twice daily - donepezil 20 mg by mouth daily - fluticasone two sprays nasally twice daily - Synthroid 75 mcg by mouth daily - loratadine 10 mg by mouth daily - Namenda 5 mg by mouth three times a day - Singulair 10 mg by mouth daily - Zofran 4 mg every eight hours as needed for nausea I recommend discontinuing her Zithromax.
== END 2016-11-16 16:44 | disposition home or self-care (01) | DRG 195 ==
LOC: M ED 18:33 → M ED INP 22:38 → M MSPAV 11-15 11:20
PROVIDERS: ADMIT Internal Medicine; ATTEND Internal Medicine
DX: J10.1 Influenza due to other identified influenza virus with other respiratory manifestations (principal); F41.9 Anxiety disorder, unspecified; F32.9 Major depressive disorder, single episode, unspecified; E87.6 Hypokalemia; D69.6 Thrombocytopenia, unspecified; R19.7 Diarrhea, unspecified; E78.5 Hyperlipidemia, unspecified; K21.9 Gastro-esophageal reflux disease without esophagitis; M19.90 Unspecified osteoarthritis, unspecified site; E03.9 Hypothyroidism, unspecified; G30.9 Alzheimer's disease, unspecified; F02.80 Dementia in other diseases classified elsewhere, unspecified severity, without behavioral disturbance, psychotic disturbance, mood disturbance, and anxiety; J30.9 Allergic rhinitis, unspecified; Z79.899 Other long term (current) drug therapy; Z79.82 Long term (current) use of aspirin; Z87.891 Personal history of nicotine dependence

== ENCOUNTER → 2017-03-13 | Outpatient (CLI) | payer OTHER ==
[~2017-03-13] MED LIST: ASPI81TA85 PO; ASPI81TAEC PO; ATOR1TAB19 PO; AZIT-12 PO; BENZ100C5 PO; BUSP10TA PO; CLAR10CA3 PO; CLON1TAB PO; DONE5TAB17 PO; DONETAB6 PO; FLUT1SPR2; LEVO75TA4 PO; LORA10TA2 PO; MONT10TA2 PO; NAME5TAB13 PO; ONDA4TAB5 PO; OSEL30CA PO; SILV1CRE60 TOP; SING5CHW23 PO
--- NOTE | 2017-03-14 10:51 | REP ---
Low-dose lung cancer screening CT study of the chest. History: Cough. History of smoking. Comparison chest x-ray January 29, 2017. Findings: There are scattered areas of pleuroparenchymal scarring in the right middle lobe and lingular segment of the left upper lobe near the lung bases. No pleural effusion is seen. No pulmonary mass or significant pulmonary nodule is appreciated. There is evidence of a small sliding hiatal hernia. Impression: Negative low-dose lung cancer screening chest CT. Minimal bibasilar linear fibrosis. Signed by Kenrick Lyons MD 03/14/2017 11:19 A
== END ==
LOC: M RAD 11:35
PROVIDERS: ATTEND Family Medicine
DX: R05 Cough (principal)

== ENCOUNTER → 2017-05-02 | Outpatient (CLI) | payer OTHER ==
--- NOTE | 2017-05-02 18:45 | REP ---
Clinical: Trauma. Technique: Frontal view of the chest with multiple views of the right hemithorax. Findings: Frontal view of the chest demonstrates no acute cardiopulmonary process. Multiple views of the right hemithorax demonstrates no obvious acute rib fracture or pathology. Impression: Normal right rib series Signed by Gianfranco Anand MD 05/02/2017 06:36 P
== END ==
LOC: M RAD 17:51
PROVIDERS: ATTEND Physician Assistant
DX: R07.81 Pleurodynia (principal)

== ENCOUNTER → 2017-09-12 | Outpatient (CLI) | payer OTHER | LOC: M WHC 14:34 | DX: Z12.31 Encounter for screening mammogram for malignant neoplasm of breast (principal) | CPT/HCPCS: 77067 ==

== ENCOUNTER → 2017-10-01 | Outpatient (CLI) | payer OTHER ==
[~2017-10-01] MED LIST changes: -ASPI81TA85 PO; -ASPI81TAEC PO; -ATOR1TAB19 PO; -AZIT-12 PO; -BENZ100C5 PO; -BUSP10TA PO; -CLAR10CA3 PO; -CLON1TAB PO; -DONE5TAB17 PO; -DONETAB6 PO; -FLUT1SPR2; +ISOVUE-370 76% 100ML VIAL (Q9967) As Ordered; -LEVO75TA4 PO; -LORA10TA2 PO; -MONT10TA2 PO; -NAME5TAB13 PO; -ONDA4TAB5 PO; -OSEL30CA PO; -SILV1CRE60 TOP; -SING5CHW23 PO
== END ==
LOC: M RAD 15:00
DX: R22.1 Localized swelling, mass and lump, neck (principal)
CPT/HCPCS: Q9967

== ENCOUNTER 2017-11-04 13:12 | Emergency (ER) | payer OTHER ==
[2017-11-04 14:06] LABS: KETONE, URINE AUTO RFX NEGATIVE (NEGATIVE); NITRITE, URINE AUTO RFX NEGATIVE (NEGATIVE); RBC, URINE AUTO RFX 1 /HPF (0-3); SPECIFIC GRAVITY UR AUTO RFX 1.002 (1.002-1.035); SQUAM EPITHELIAL CELL UR AURFX 0 /HPF (0-6); WBC, URINE AUTO RFX 1 /HPF (0-3)
[2017-11-04 14:11] LABS: LEUKOCYTE ESTERASE UR AUTO RFX TRACE (NEGATIVE)
[2017-11-04 16:46] LABS: BASO % 0.4 % (0.0-1.0); EOS # 0.1 10^3/uL (0.0-0.50); EOS % 0.9 % (0.0-3.0); HEMATOCRIT 43.5 % (36.0-47.0); HEMOGLOBIN 14.9 g/dl (12.0-16.0); IMMATURE GRANULOCYTE % 0.6 % (0-3.0); LYMPH # 1.5 10^3/uL (1.5-4.5); LYMPH % 27.8 % (24.0-44.0); MEAN CORPUSCULAR HEMOGLOBIN 30.7 pg (27.0-33.0); MEAN CORPUSCULAR HGB CONC 34.3 g/dl (32.0-36.5); MEAN CORPUSCULAR VOLUME 89.5 fl (80.0-96.0); MONO # 0.3 10^3/uL (0.0-0.8); MONO % 4.6 % (0.0-5.0); NEUTROPHILS # 3.5 10^3/uL (1.8-7.7); NEUTROPHILS % 65.7 % (36.0-66.0); PLATELET COUNT, AUTOMATED 107 10^3/uL (150-450); RED BLOOD COUNT 4.86 10^6/uL (4.00-5.40); WHITE BLOOD COUNT 5.4 10^3/uL (4.0-10.0)
== END 2017-11-04 17:21 | disposition home or self-care (01) ==
LOC: M ED 13:12
DX: N93.9 Abnormal uterine and vaginal bleeding, unspecified (principal); N76.0 Acute vaginitis; D69.6 Thrombocytopenia, unspecified; K21.9 Gastro-esophageal reflux disease without esophagitis; F03.90 Unspecified dementia, unspecified severity, without behavioral disturbance, psychotic disturbance, mood disturbance, and anxiety; Z79.82 Long term (current) use of aspirin; Z79.899 Other long term (current) drug therapy
CPT/HCPCS: 85025

== ENCOUNTER → 2017-11-27 | Outpatient (CLI) | payer OTHER | LOC: M WHC 14:18 | DX: M19.90 Unspecified osteoarthritis, unspecified site (principal); M81.0 Age-related osteoporosis without current pathological fracture | CPT/HCPCS: 77080 ==

== ENCOUNTER → 2018-10-27 | Outpatient (CLI) | payer MEDICARE ==
[~2018-10-27] MED LIST changes: +ASPI81TA85 PO; +ASPI81TAEC PO; +ATOR1TAB19 PO; +AZIT-12 PO; +BENZ-18 PO; +BUSP10TA PO; +CITA20TA4 PO; +CLAR10CA3 PO; +CLON1TAB8 PO; +DONE5TAB64 PO; +DONETAB6 PO; +FLUT1SPR2; -ISOVUE-370 76% 100ML VIAL (Q9967) As Ordered; +LEVO75TA4 PO; +LORA-243 PO; +MONT10TA2 PO; +NAME5TAB13 PO; +ONDA4TAB5 PO; +OSEL30CA PO; +SILV1CRE60 TOP; +SING5CHW23 PO; +VITA200025 PO
--- NOTE | 2018-10-27 18:10 | REPMRS ---
Patient History The patient states she had a clinical breast exam in 10/20 No known family history of cancer. Benign FNA biopsy of the left breast, 1965. Digital Woman Screen Mammo: October 27, 2018 - Exam #: [id number] Bilateral CC and MLO view(s) were taken. Technologist: Faviola Morales, Technologist Prior study comparison: September 12, 2017, digital woman screen mammo performed at [facility]. August 07, 2016, digital woman screen mammo performed at [facility]. July 03, 2015, digital woman screen mammo performed at [facility]. FINDINGS: There are scattered fibroglandular densities. Dilated retroareolar ducts are again seen unchanged. These are noted bilaterally. The needle biopsy marker clip is also again noted on the left. There has been no change in the appearance of the mammogram from the prior studies. There is a mild amount of scattered fibroglandular density which is fairly symmetric. There is no interval development of dominant mass, architectural distortion, or clustered microcalcification suggestive of malignancy. 3-D tomosynthesis shows no additional findings. Assessment: BI-RADS/ACR category 2 mammogram. Benign Findings. Recommendation Routine screening mammogram of both breasts in 1 year (for women over age 40). This patient's Lifetime Breast Cancer RIsk is estimated at 1.7 %. This mammogram was interpreted with the aid of an FDA-approved computer-aided dectection system. Electronically Signed By: Kev Lyons MD 10/27/18 [id number]
== END ==
LOC: M WHC 12:44
PROVIDERS: ATTEND Nurse Practitioner
DX: Z12.31 Encounter for screening mammogram for malignant neoplasm of breast (principal)

== ENCOUNTER → 2019-04-13 | Outpatient (CLI) | payer MEDICARE ==
[~2019-04-13] MED LIST changes: +CALCCAP4 PO; -CITA20TA4 PO; +CITA20TA6 PO; +DONE10TA90 PO; +KLON0.5T PO; +VITAD1000T PO
[2019-04-13 11:50] LABS: HEMATOCRIT 40.2 % (36.0-47.0); HEMOGLOBIN 13.4 g/dl (12.0-15.5); MEAN CORPUSCULAR HEMOGLOBIN 30.5 pg (27.0-33.0); MEAN CORPUSCULAR HGB CONC 33.3 g/dl (32.0-36.5); MEAN CORPUSCULAR VOLUME 91.4 fl (80.0-96.0); WHITE BLOOD COUNT 3.5 10^3/uL (4.0-10.0)
[2019-04-13 11:56] LABS: PLATELET COUNT, AUTOMATED 92 10^3/uL (150-450)
[2019-04-13 12:14] LABS: INR 1.1
[2019-04-13 12:22] LABS: ALBUMIN 3.6 GM/DL (3.2-5.2); ALT/SGPT 28 U/L (12-78); BILIRUBIN,TOTAL 0.5 MG/DL (0.2-1.0); BLOOD UREA NITROGEN 11 MG/DL (7-18); CALCIUM LEVEL 8.6 MG/DL (8.8-10.2); CARBON DIOXIDE LEVEL 26 MEQ/L (21-32); CHLORIDE LEVEL 110 MEQ/L (98-107); CREATININE FOR GFR 0.76 MG/DL (0.55-1.30); GLOMERULAR FILTRATION RATE > 60.0 (>32); GLUCOSE, FASTING 77 MG/DL (70-100); POTASSIUM SERUM 4.1 MEQ/L (3.5-5.1); SODIUM LEVEL 144 MEQ/L (136-145); TOTAL PROTEIN 5.9 GM/DL (6.4-8.2)
[2019-04-13 13:21] LABS: ERYTHROCYTE SEDIMENTATION RATE 5 mm/hr (0-30)
--- NOTE | 2019-04-13 18:28 | REP ---
REASON: Preoperative evaluation. COMPARISON: Frontal view obtained 05/02/2017, the latest prior lateral view dated 01/29/2017 was reviewed. In the inferior aspect of the retrosternal clear space there is an asymmetric density which was not present on the latest prior lateral view. The lung calvin are otherwise clear and stable and the heart is not enlarged and the pleural angles are sharp. The osseous strictures are within normal limits. IMPRESSION: Asymmetric density seen only on the lateral view in the inferior retrosternal clear space and representing a change from the latest prior available for comparison of 01/29/2017. CT examination of the chest is recommended. Electronically Signed by Kyle Gruber DO 04/14/2019 09:32 A
--- NOTE | 2019-04-13 20:52 | ECGEPIP ---
[facility] Test Date: 2019-04-13 Pat Name: ELIAS SLATER Department: Room: - Gender: Female Survey Project Manager: IREEN : 1940 Requested By: Francois Sanchez @ [facility] Order Number: [id number] Reading MD: Castro Marshall Measurements Intervals [place] Rate: 55 P: 108 DE: 188 QRS: -1 QRSD: 136 T: 110 QT: 491 QTc: 470 Interpretive Statements SINUS BRADYCARDIA LEFT BUNDLE BRANCH BLOCK PRIOR TRACING ON 09/25/2016 AT 10:27 P.M., NO SIGNIFICANT CHANGES Electronically Signed on 04-13-2019 20:51:51 EDT by Castor Marshall
== END ==
LOC: M LAB 11:10
PROVIDERS: ATTEND Orthopaedic Surgery
DX: Z01.818 Encounter for other preprocedural examination (principal); M17.12 Unilateral primary osteoarthritis, left knee

== ENCOUNTER → 2019-05-01 | Outpatient (CLI) | payer MEDICARE ==
[~2019-05-01] MED LIST changes: +CHOL100029 PO; +HYDR-3713 PO; +MUPI2OI; -VITAD1000T PO; +XARE10TA PO
--- NOTE | 2019-05-01 09:35 | REP ---
Clinical: Left shoulder pain. Technique: Internal rotation, external rotation, and Y view of the left shoulder. Comparison: 12/26/2016. Findings: Subtle cortical irregularity at the acromioclavicular joint is again appreciated and similar to prior examination. Subtle cortical irregularity and blunting to the calcified glenoid rim as well as of the humeral greater tuberosity is also appreciated. The subacromial space is normal. No periarticular calcifications or loose bodies noted. No acute fracture dislocation. Impression: Relatively mild age related osteoarthritic degenerative changes. Electronically Signed by Gianfranco Anand MD 05/01/2019 09:27 A
== END ==
LOC: M RAD 08:48
PROVIDERS: ATTEND Physician Assistant
DX: M25.512 Pain in left shoulder (principal); M19.012 Primary osteoarthritis, left shoulder

== ENCOUNTER → 2019-05-05 | Outpatient (CLI) | payer MEDICARE ==
[~2019-05-05] MED LIST changes: +ONDA-83 PO; -ONDA4TAB5 PO
--- NOTE | 2019-05-05 15:44 | REP ---
CT chest without contrast: History: Abnormal chest x-ray May 01, 2019. Comparison chest CT study March 13, 2017 and February 14, 2010. CT findings: There are coarse linear opacities in the lingular segment of the left upper lobe and in the right middle lobe consistent with fibrosis. These are unchanged from the March 13, 2017 study and consistent with fibrosis. There is a small hiatal hernia again noted. There is coarse linear pleuroparenchymal fibrosis in the left apex which is more pronounced than on the comparison CT studies although not completely new. No mass lesion is visible. No infiltrate or pleural effusion is noted. No mediastinal adenopathy is observed. No adrenal lesion is seen. Visualized upper abdominal structures are unremarkable. No bony destructive lesion is appreciated. More there are degenerative disc changes in the thoracic spine. Impression: Stable fibrotic changes in the right middle lobe and lingula. Hiatal hernia. Coarse fibrosis versus discoid atelectasis left apex. Otherwise no acute disease. Electronically Signed by Kenrick Lyons MD 05/05/2019 03:36 P
== END ==
LOC: M RAD 14:19
PROVIDERS: ATTEND Physician Assistant Medical
DX: Z01.818 Encounter for other preprocedural examination (principal); R91.8 Other nonspecific abnormal finding of lung field; K44.9 Diaphragmatic hernia without obstruction or gangrene

== ENCOUNTER 2019-05-10 10:41 | Inpatient (IN) | payer MEDICARE ==
--- NOTE | 2019-05-07 17:14 | HPE ---
DATE OF ANTICIPATED ADMISSION: 05/10/2019 ATTENDING PHYSICIAN: Dr. Francois Sanchez CHIEF COMPLAINT: Left knee pain and stiffness. HISTORY: This is a pleasant 79-year-old female patient with worsening left knee pain and stiffness who has failed to improve with conservative management and has continued pain with activities of daily living. She has consented for a left total knee arthroplasty for her continued symptoms with Dr. Francois Sanchez. ALLERGIES: No known drug allergies. CURRENT MEDICATIONS: - Nystop topically - clonazepam 0.5 mg one by mouth daily as needed - Namenda 10 mg one by mouth twice a day - citalopram hydrobromide 20 mg one by mouth daily - Aleve 220 mg one by mouth daily - atorvastatin 10 mg one by mouth daily - vitamin D3 2000 units one by mouth daily - donepezil 10 mg two by mouth daily - levothyroxine 75 mcg one by mouth daily PAST MEDICAL HISTORY: Vitamin D deficiency. Allergic rhinitis. Hyperlipidemia. Deviated septum. Senile dementia. Generalized anxiety. Thrombocytopenic disorder. Depressive disorder. Hypothyroidism. PAST SURGICAL HISTORY: Right rotator cuff repair. Bilateral bunionectomy. Hammertoe correction. FAMILY HISTORY: Father - heart disease. Mother - stroke. SOCIAL HISTORY: . Former smoker. No alcohol use. REVIEW OF SYSTEMS: Denies fever, chills, chest pain, shortness breath, nausea, vomiting, diarrhea. PHYSICAL EXAMINATION: Vital signs: Height 59.5 inches, weight 136 pounds, temperature 98.8, blood pressure 131/87, pulse 64, respirations 10. Normocephalic, atraumatic. Neck: Supple and nontender with no lymphadenopathy or jugular venous distention (JVD). S1, S2 auscultated with no murmurs, rubs or gallops. Lungs: Clear to auscultation bilaterally with no wheezes, rales, rhonchi. Abdomen: Soft, nontender. Left knee with no rashes. Overlying skin is intact. Left lower extremity is well perfused, and he has intact range of motion. No instability to varus-valgus stress. Chest x-ray with asymmetric density seen on lateral view in inferior retrosternal clear space, otherwise no acute cardiopulmonary process. CT recommended. CT scan completed with unremarkable findings. EKG with sinus bradycardia and left bundle branch block. LABS: White count 3.5, red count 4.4, hemoglobin 13.4, hematocrit 40.2, ESR 5, BUN 11, creatinine 0.76, PT 14, INR 1.1. Medical optimization by Dr. Johnnie Sanchez completed and reviewed. IMPRESSION: Symptomatic left knee osteoarthritis. PLAN: Consented for a left total knee arthroplasty with Dr. Sanchez.
[~2019-05-10] VITALS: Ht 152.4 cm; Wt 60.8 kg
[~2019-05-10 10:41] MED LIST changes: -HYDR-3713 PO; +LR 1,000 ML IV ONE; -MUPI2OI; -XARE10TA PO; +ceFAZolin SOD 2 GM in IV 1 EA IV ONE
[2019-05-10] MEDS ORDERED: MUPI2OI (11:37)
[2019-05-10] MEDS ORDERED: fentaNYL 100 MCG/2 ML INJECTION (J3010) As Ordered ONE ×2 (11:45→12:29)
[2019-05-10] MEDS ORDERED: MIDAZOLAM INJ 2 MG/2 ML VIAL (J2250) As Ordered ONE ×2 (11:46→11:51)
[2019-05-10] MEDS ORDERED: propofoL 200 MG/20 ML VIAL As Ordered ONE ×2 (11:51→14:04)
[2019-05-10] MEDS ORDERED: LIDOCAINE 2% INJ 100 MG/5 ML SDV (FOR ANES.) As Ordered ONE (11:51)
[2019-05-10] MEDS ORDERED: dexameTHASONE 4 MG/ML 1ML VIAL (J1100) As Ordered ONE (11:52)
[2019-05-10] MEDS ORDERED: ONDANSETRON 4MG/2ML VIAL (J2405) As Ordered ONE (11:52)
[2019-05-10] MEDS: fentaNYL 100 MCG/2 ML INJECTION (J3010) IV SCH ×2 (12:00→12:06)
[2019-05-10] MEDS ORDERED: BUPIVACAINE LIPOSOME/PF 1.3% 20ML VIAL (13.3MG/ML)(EXPAREL)(C9290 PER1MG) As Ordered ONE (12:29)
[2019-05-10] MEDS ORDERED: ceFAZolin 1GM INJ (J0690 PER 500MG) As Ordered ONE (12:29)
[2019-05-10] MEDS ORDERED: EPINEPHrine INJ 1 MG/ML 1ML VIAL As Ordered ONE (12:29)
[2019-05-10] MEDS ORDERED: TRANEXAMIC ACID 100 MG/ML 10ML VIAL As Ordered ONE (12:29)
[2019-05-10] MEDS ORDERED: MIDAZOLAM INJ 2 MG/2 ML VIAL (J2250) IV ONE (12:30)
--- NOTE | 2019-05-10 12:36 | HPE ---
DATE OF SERVICE: 05/10/2019 The patient seen and examined. She wished to go ahead with a left total knee arthroplasty. She understands the nature of this, the risks of bleeding, infection, damage to nerves, vessels, persistent pain, wear loosening, blood clots, medical problems, , among others. A preoperative clearance was obtained.
[2019-05-10] MEDS ORDERED: BUPIVACAINE/DEXTROSE 0.75% 2 ML AMP As Ordered ONE (12:39)
[2019-05-10] MEDS ORDERED: ePHEDrine SULFATE 25 MG/5 ML(5MG/ML) SYRINGE As Ordered ONE (13:28)
[2019-05-10] MEDS ORDERED: ACETAMINOPHEN 1000MG 100ML IV BTL (OFIRMEV) (J0131 PER 10MG) As Ordered ONE (14:10)
[2019-05-10] MEDS ORDERED: ONDANSETRON 4MG/2ML VIAL (J2405) IV PRN ×2 (14:45→15:00)
[2019-05-10] MEDS ORDERED: oxyCODONE 5MG TAB PO PRN (14:45)
[2019-05-10] MEDS ORDERED: LR 1,000 ML IV SCH (14:45)
[2019-05-10] MEDS ORDERED: fentaNYL 100 MCG/2 ML INJECTION (J3010) IV PRN (14:45)
[2019-05-10] MEDS ORDERED: ROPIvacaine 0.5% 30 ML INJECTION (J2795 PER 1MG) ONE (14:54)
[2019-05-10] MEDS ORDERED: dexameTHASONE 10 MG/1 ML VIAL PRES.FREE (J1100) ONE (14:54)
[2019-05-10] MEDS ORDERED: MORPHINE 4 MG/ML 1ML VIAL/SYRINGE (J2270) IV PRN (15:00)
[2019-05-10] MEDS ORDERED: ACETAMINOPHEN TAB 650MG DOSE (2X325MG) PO PRN (15:00)
[2019-05-10] MEDS: LR 1,000 ML IV SCH (15:00)
[2019-05-10] MEDS ORDERED: FLEET ENEMA PR PRN (15:00)
--- NOTE | 2019-05-10 15:13 | REP ---
Left knee: Two views. History: Status post knee replacement. Comparison study: April 16, 2016. Findings: AP and lateral views of the left knee demonstrate anterior skin jazmyne. Left total knee arthroplasty components appear well aligned. There is interarticular and periarticular soft tissue air and swelling.. Electronically Signed by Kenrick Lyons MD 05/10/2019 03:04 P
[2019-05-10 15:20] LABS: HEMATOCRIT 38.6 % (36.0-47.0); HEMOGLOBIN 12.8 g/dl (12.0-15.5); MEAN CORPUSCULAR HEMOGLOBIN 30.5 pg (27.0-33.0); MEAN CORPUSCULAR HGB CONC 33.2 g/dl (32.0-36.5); MEAN CORPUSCULAR VOLUME 91.9 fl (80.0-96.0)
[2019-05-10 15:23] LABS: PLATELET COUNT, AUTOMATED 79 10^3/uL (150-450)
[2019-05-10 15:28] VITALS: BP 107/69
--- NOTE | 2019-05-10 15:38 | RO ---
DATE OF PROCEDURE: 05/10/2019 PREOPERATIVE DIAGNOSIS: Left knee osteoarthritis. POSTOPERATIVE DIAGNOSIS: Left knee osteoarthritis. PROCEDURE: Left total knee arthroplasty using an Attune rotating platform size 4 femur, size 3 tibia, 5 polyethylene, 35 patellar button. SURGEON: Francois Sanchez MD BAREBACK RIDER: KINA Mccann ANESTHESIA: Spinal. ESTIMATED BLOOD LOSS (EBL): 50. COMPLICATIONS: None. PROCEDURE: The patient was taken to the operating room and placed in supine. After spinal anesthesia was induced, the left lower extremity was prepped and draped in usual sterile fashion. Time-out was performed. Tourniquet was inflated and a longitudinal incision was made over the anterior aspect of the knee. Sharp dissection was carried down through subcutaneous tissue. A medial parapatellar arthrotomy was performed. I flexed the knee up and used a canal initiating reamer. I had also done a medial release. Intramedullary guide was inserted in the femoral side and the cutting block was set at 9 mm of cut and 5 degrees of valgus. The cutting block was secured in place and the distal femoral cut was made in the usual fashion. I actually elected to take two more millimeters just because it looked like a fairly thin distal cut. I then sized the femur to be a 4. The drill holes were placed the end of the femur, the cutting block was secured and the remaining cuts were made. I then prepared the tibial surface. The tibial alignment guide was placed in appropriate amount of valgus and posterior slope. A proximal tibia cut was made removing 4 mm from the low side. I protected the posterior cruciate ligament (PCL). A diplomatic interpreter/translator was used to remove soft tissue and osteophytes from either side of the knee. I then prepared the femoral sulcus cut in the usual fashion with a saw and the guide. The tibial tray was placed. A size 3 fit nicely after removing all osteophytes from around the femur and tibia. This was secured in place, drilled and broached. I had also used a spacer block prior to this and a size 5 felt like the most appropriate in flexion and extension. The gaps in the alignment appeared to be appropriate. I then placed the actual trial components, impacted them in place and put the knee through range of motion. Excellent stability and alignment was noted with a size 5 polyethylene. Full extension. Excellent flexion. There was no roll back issues. I then freehand cut the patella removing about 7 mm of bone and sized to be a 35. The drill holes were placed in the patella. I then placed the trial button and put the knee through range of motion. The patella tracked quite nicely. I did do a little bit of a lateral release to allow for tracking. Trial components removed. I then irrigated, placed the Exparel in the deep tissues, dried the bony surfaces and cemented in the components. I removed all excess bone cement. Irrigated again. Placed the tranexamic acid (TXA) in the deep wound. I then closed the deep layer with #1 Vicryl suture in running Stratafix and also did a final irrigation of the deep layer prior to final wound closure. Watertight closure was obtained. I irrigated the subcu. #2-0 Vicryl was used closed subcu and the skin with jazmyne. Tourniquet was deflated once the cement hardened. Sterile dressing was applied. She was taken to recovery room in stable condition. There were no known complications. The plan will be routine postop. The judicial administrative assistant was instrumental in holding retractors and assisting in mixing the bone cement and assisting in wound closure and leg positioning.
[2019-05-10 15:50] LABS: ALBUMIN 3.4 GM/DL (3.2-5.2); ALT/SGPT 24 U/L (12-78); BILIRUBIN,TOTAL 0.5 MG/DL (0.2-1.0); BLOOD UREA NITROGEN 15 MG/DL (7-18); CALCIUM LEVEL 8.5 MG/DL (8.8-10.2); CARBON DIOXIDE LEVEL 25 MEQ/L (21-32); CHLORIDE LEVEL 108 MEQ/L (98-107); CREATININE FOR GFR 0.77 MG/DL (0.55-1.30); GLOMERULAR FILTRATION RATE > 60.0 (>32); GLUCOSE, FASTING 104 MG/DL (70-100); SODIUM LEVEL 142 MEQ/L (136-145); TOTAL PROTEIN 5.6 GM/DL (6.4-8.2)
[2019-05-10 15:54] VITALS: BP 111/67
[2019-05-10] MEDS: NORCO, ANEXSIA 5/325MG TABLET (HYDROcodone/ACETAMINOPHEN) PO PRN (16:06)
[2019-05-10 16:25] VITALS: BP 116/63
[2019-05-10 17:26] VITALS: BP 141/67
[2019-05-10 18:27] VITALS: BP 108/59
[2019-05-10] MEDS: MORPHINE 4 MG/ML 1ML VIAL/SYRINGE (J2270) IV PRN (18:53)
[2019-05-10] MEDS ORDERED: NON-FORMULARY 1 EA EA PO SCH (21:00)
[2019-05-10] MEDS: clonazePAM 0.5 MG TAB PO SCH (21:36)
[2019-05-10] MEDS: MEMANTINE 5MG TABLET (NAMENDA) PO SCH (21:36)
[2019-05-10] MEDS: busPIRone 10 MG TAB PO SCH (21:36)
[2019-05-10] MEDS: ceFAZolin SOD 2 GM in IV 1 EA IV SCH (21:37)
[2019-05-11] MEDS: NORCO, ANEXSIA 5/325MG TABLET (HYDROcodone/ACETAMINOPHEN) PO PRN ×4 (01:58→19:35)
[2019-05-11 02:00] VITALS: BP 112/51
--- NOTE | 2019-05-11 02:52 | CR.PDOC ---
General Date of Consultation: May 10, 2019 Consultation REASON FOR CONSULTATION/CHIEF COMPLAINT: management of medical comorbidities HISTORY OF PRESENT ILLNESS: 79f with left knee pain not responding to conservative therapy, presents for elective total knee replacement. Had surgery without complication. pt resting in bed afterwards with no complaints ALLERGIES: Please see below. HOME MEDICATIONS: Please see below. PAST MEDICAL HISTORY: hypothyroid, mild dementia, chronic thrombocytopenia PAST SURGICAL HISTORY: shoulder surgery, foot surgery FAMILY HISTORY: heart disease, stroke SOCIAL HISTORY: former smoker, no drugs or etoh REVIEW OF SYSTEMS: a full ROS was performed and negative except as above PHYSICAL EXAMINATION: VITAL SIGNS: Please see below. GENERAL APPEARANCE: awake, no apparent distress HEENT: normocephalic, atraumatic, EOMI, PERRLA RESPIRATORY: cta bilaterally, good air movement CARDIOVASCULAR: s1 s2, no mrg, rrr ABDOMEN: soft, nontender, nondistended EXTREMITIES: good rom, no deformities or tenderness NEUROLOGICAL: no focal deficits PSYCHIATRIC: A&Ox3, nl mood and affect LABORATORY DATA: Please see below. ASSESSMENT/PLAN: 79f s/p left knee replacement pain mgmt per ortho dvt proph per ortho thrombocytopenia stable avoid heparin monitor platelet counts while in hospital hypothyroid continue synthroid Vital Signs/I&O Vital Signs Date Time Temp Pulse Resp B/P (MAP) Pulse Ox O2 Delivery O2 Flow Rate FiO2 05/10/19 19:03 18 05/10/19 18:27 97.4 78 108/59 (75) 94 05/10/19 14:45 2 Laboratory Data Labs 24H Laboratory Tests 2 05/10/19 15:01: Nucleated Red Blood Cells % (auto) 0.0, Immature Platelet Fraction 2.5, Anion Gap 9, Glomerular Filtration Rate > 60.0, Blood Urea Nitrogen 15, Creatinine 0.77, Sodium Level 142, Potassium Level 4.0, Chloride Level 108H, Carbon Dioxide Level 25, Calcium Level 8.5L, Aspartate Amino Transf (AST/SGOT) 23, Alanine Aminotransferase (ALT/SGPT) 24, Alkaline Phosphatase 78, Total Bilirubin 0.5, Total Protein 5.6L, Albumin 3.4, Magnesium Level 2.0, Albumin/Globulin Ratio 1.55, Thyroid Stimulating Hormone (TSH) 1.840 CBC/BMP Laboratory Tests 05/10/19 15:01 Red Blood Count 4.20, Mean Corpuscular Volume 91.9, Mean Corpuscular Hemoglobin 30.5, Mean Corpuscular Hemoglobin Concent 33.2, Red Cell Distribution Width 11.9 , Calcium Level 8.5 L, Aspartate Amino Transf (AST/SGOT) 23, Alanine Aminotransferase (ALT/SGPT) 24, Alkaline Phosphatase 78, Total Bilirubin 0.5, Total Protein 5.6 L, Albumin 3.4 Allergies Coded Allergies: No Known Allergies (Unverified , 04/15/19) Home Medications Scheduled Atorvastatin Calcium (Atorvastatin Calcium) 10 Mg Tab, 10 MG PO DAILY, (Reported) Buspirone HCl (Buspirone HCl) 10 Mg Tab, 10 MG PO BID, (Reported) Calcium Carbonate/Vitamin D3 (Calcium 600 + Vit D 400 Softgl) 1 Each Capsule, 1 CAP PO BID, (Reported) Citalopram Hydrobromide (Citalopram HBr) 20 Mg Tab, 10 MG PO DAILY, (Reported) Clonazepam (Klonopin) 0.5 Mg Tablet, 0.5 MG PO QHS, (Reported) Donepezil HCl (Donepezil HCl) 10 Mg Tablet, 10 MG PO QHS, (Reported) Levothyroxine Sodium (Levothyroxine Sodium) 75 Mcg Tab, 75 MCG PO DAILY, (R eported) Memantine HCl (Namenda) 5 Mg Tab, 10 MG PO BID, (Reported) Vitamin D (Vitamin D3) 1,000 Unit Tablet, Unknown Dose PO DAILY, (Reported) Miscellaneous Medications Mupirocin (Mupirocin) 22 Gm Oint...g., (Reported) KAPIL CANALES MD May 10, 2019 23:00
[2019-05-11] MEDS: LR 1,000 ML IV SCH (04:20)
[2019-05-11] MEDS: LEVOTHYROXINE 75MCG TABLET (0.075MG) PO SCH (05:27)
[2019-05-11] MEDS: MORPHINE 4 MG/ML 1ML VIAL/SYRINGE (J2270) IV PRN (05:28)
[2019-05-11] MEDS: ceFAZolin SOD 2 GM in IV 1 EA IV SCH (05:28)
[2019-05-11 06:00] VITALS: BP 113/52
[2019-05-11] MEDS ORDERED: ONDANSETRON 4 MG TAB (S0181) PO PRN (06:15)
[2019-05-11] MEDS ORDERED: MIRALAX *UNIT DOSE* 17GM PACKET PO PRN (06:15)
[2019-05-11 06:43] LABS: HEMATOCRIT 32.6 % (36.0-47.0); MEAN CORPUSCULAR HEMOGLOBIN 30.5 pg (27.0-33.0); MEAN CORPUSCULAR HGB CONC 33.1 g/dl (32.0-36.5); MEAN CORPUSCULAR VOLUME 92.1 fl (80.0-96.0); RED BLOOD COUNT 3.54 10^6/uL (4.00-5.40); WHITE BLOOD COUNT 5.1 10^3/uL (4.0-10.0)
[2019-05-11 06:47] LABS: HEMOGLOBIN 10.8 g/dl (12.0-15.5); PLATELET COUNT, AUTOMATED 79 10^3/uL (150-450)
[2019-05-11] MEDS: ATORVASTATIN 10 MG TAB PO SCH (08:25)
[2019-05-11] MEDS: busPIRone 10 MG TAB PO SCH ×2 (08:25→20:16)
[2019-05-11] MEDS: MOM 30ML SUSPENSION UDC PO SCH (08:25)
[2019-05-11] MEDS: CitaloPRAM (CeleXA) 10 MG TABLET PO SCH (08:25)
[2019-05-11] MEDS: MEMANTINE 5MG TABLET (NAMENDA) PO SCH ×2 (08:25→20:16)
[2019-05-11 10:00] VITALS: BP 140/66
[2019-05-11] MEDS: RIVAROXABAN 10 MG TAB (XARELTO) PO SCH (17:14)
[2019-05-11 18:00] VITALS: BP 139/56
[2019-05-11] MEDS: clonazePAM 0.5 MG TAB PO SCH (20:16)
[2019-05-11] MEDS: RAMELTEON 8 MG TAB (ROZEREM) PO SCH (20:16)
[2019-05-11] MEDS: DONEPEZIL 5 MG TAB PO SCH ×2 (21:00→22:03)
[2019-05-11 22:00] VITALS: BP 136/64
[2019-05-12] MEDS: NORCO, ANEXSIA 5/325MG TABLET (HYDROcodone/ACETAMINOPHEN) PO PRN ×4 (02:06→20:09)
[2019-05-12] MEDS: LEVOTHYROXINE 75MCG TABLET (0.075MG) PO SCH (05:27)
[2019-05-12 06:00] VITALS: BP 135/67
[2019-05-12] MEDS ORDERED: XARE10TA PO (06:32)
[2019-05-12] MEDS ORDERED: HYDR-3713 PO (06:32)
[2019-05-12] MEDS: MOM 30ML SUSPENSION UDC PO SCH (08:46)
[2019-05-12] MEDS: ATORVASTATIN 10 MG TAB PO SCH (08:46)
[2019-05-12] MEDS: busPIRone 10 MG TAB PO SCH ×2 (08:46→20:08)
[2019-05-12] MEDS: MEMANTINE 5MG TABLET (NAMENDA) PO SCH ×2 (08:46→20:08)
[2019-05-12] MEDS: CitaloPRAM (CeleXA) 10 MG TABLET PO SCH (08:47)
[2019-05-12 13:28] VITALS: BP 105/58
--- NOTE | 2019-05-12 14:14 | IPNPDOC ---
Text Note Date of Service The patient was seen on 05/12/19. NOTE Subjective: Feels well except for the pain in her L knee that was recently operated on. ROS: no fever, chills, rigors, dysuria with the pertinent positive being the L leg pain. All other elements of the 12 point ROS were negative Objective: VITAL SIGNS: Please see below. GENERAL APPEARANCE: awake, no apparent distress, lying in bed with L leg securely placed HEENT: normocephalic, atraumatic, EOMI, PERRLA RESPIRATORY: CTAB CARDIOVASCULAR: s1 s2, no murmurs ABDOMEN: soft, nontender, nondistended EXTREMITIES: good UE and RLE range of motion NEUROLOGICAL: no focal deficits PSYCHIATRIC: A&Ox3, looking forward to going home LABORATORY DATA: Please see below. ASSESSMENT/PLAN: 79f with a history of chronic thrombocytopenia and hypothyroidism admitted for knee replacement surgery now s/p left knee replacement with medicine following for thrombocytopenia and hypothyroidism. Patient doing well, with stable thrombocytopenia and continuing home synthroid, likely to be discharged today. Will sign off. pain mgmt per ortho dvt proph per ortho thrombocytopenia stable avoid heparin monitor platelet counts while in hospital hypothyroid continue synthroid VS,Fishbone, I+O VS, Fishbone, I+O Vital Signs Date Time Temp Pulse Resp B/P (MAP) Pulse Ox O2 Delivery O2 Flow Rate FiO2 05/12/19 11:55 16 05/12/19 06:00 98.4 64 135/67 (89) 94 05/10/19 14:45 2 I&O- Last 24 Hours up to 6 AM 05/12/19 06:00 Intake Total 1050 ml Balance 1050 ml CAMELIA ABRAHAM MD May 12, 2019 14:14
[2019-05-12] MEDS: RIVAROXABAN 10 MG TAB (XARELTO) PO SCH (17:22)
[2019-05-12] MEDS: DONEPEZIL 5 MG TAB PO SCH (20:08)
[2019-05-12] MEDS: RAMELTEON 8 MG TAB (ROZEREM) PO SCH (20:08)
[2019-05-12] MEDS: clonazePAM 0.5 MG TAB PO SCH (20:08)
[2019-05-12 22:00] VITALS: BP 136/64
[2019-05-13] MEDS: LEVOTHYROXINE 75MCG TABLET (0.075MG) PO SCH (05:43)
[2019-05-13] MEDS: NORCO, ANEXSIA 5/325MG TABLET (HYDROcodone/ACETAMINOPHEN) PO PRN ×2 (05:43→10:24)
[2019-05-13 06:00] VITALS: BP 133/59
[2019-05-13] MEDS ORDERED: MAGNESIUM CITRATE 300 ML BTL PO ONE (09:00)
[2019-05-13] MEDS: MOM 30ML SUSPENSION UDC PO SCH (09:16)
[2019-05-13] MEDS: MEMANTINE 5MG TABLET (NAMENDA) PO SCH (09:17)
[2019-05-13] MEDS: busPIRone 10 MG TAB PO SCH (09:17)
[2019-05-13] MEDS: CitaloPRAM (CeleXA) 10 MG TABLET PO SCH (09:17)
[2019-05-13] MEDS: ATORVASTATIN 10 MG TAB PO SCH (09:18)
--- NOTE | 2019-05-18 10:34 | DSES ---
DATE OF ADMISSION: 05/10/2019 DATE OF DISCHARGE: 05/13/2019 ATTENDING PHYSICIAN: Francois Sanchez MD ADMITTING DIAGNOSIS: Osteoarthritis left knee. OTHER DIAGNOSES: Hypothyroidism, mild dementia, chronic thrombocytopenia. DISCHARGE DIAGNOSIS: Osteoarthritis left knee, status post left total knee arthroplasty. OPERATION PERFORMED: Left total knee arthroplasty. HISTORY: This is an 79-year-old female patient with progressively worsening left knee pain that failed to improve with conservative management. She was admitted for an elective knee replacement left side. HOSPITAL COURSE: The patient was admitted on day of surgery and underwent a left total knee arthroplasty, which was uneventful. She did struggle with the requirements of physical therapy and ultimately was discharged to the group home facility for further rehabilitation. On day of discharge, her pain was controlled. She was weightbearing as tolerated in her left lower extremity. She will move her left knee to prevent stiffness. She will followup in our office in 10-14 days for surgical followup. She will resume her preoperative medications and diet. She will use oral pain medications for pain control. She was given instructions to include but not limited to wound monitoring and activity limitations. Please refer to the medical record for details. Deep venous thrombosis (DVT) prophylaxis. She will use thromboembolic deterrent (SERENE) stockings for 30 days. Also, will use Xarelto 10 mg per their protocol.
== END 2019-05-13 11:35 | DRG 470 ==
LOC: M OR 10:41 → M MS5PR 15:15
PROVIDERS: ADMIT Orthopaedic Surgery; ATTEND Orthopaedic Surgery
PROC: 0SRD0J9 Replacement of Left Knee Joint with Synthetic Substitute, Cemented, Open Approach (ICD-10-PCS; principal; 2019-05-10 12:45)
DX: M17.12 Unilateral primary osteoarthritis, left knee (principal); Z79.899 Other long term (current) drug therapy; E55.9 Vitamin D deficiency, unspecified; F41.1 Generalized anxiety disorder; E78.5 Hyperlipidemia, unspecified; D69.6 Thrombocytopenia, unspecified; F32.9 Major depressive disorder, single episode, unspecified; F03.90 Unspecified dementia, unspecified severity, without behavioral disturbance, psychotic disturbance, mood disturbance, and anxiety; E03.9 Hypothyroidism, unspecified; Z87.891 Personal history of nicotine dependence; I44.7 Left bundle-branch block, unspecified

== ENCOUNTER → 2019-05-18 | Outpatient (REF) ==
[~2019-05-18] MED LIST changes: +HYDR-3713 PO; -LR 1,000 ML IV ONE; +MUPI2OI; -ONDA-83 PO; +ONDA4TAB5 PO; +XARE10TA PO; -ceFAZolin SOD 2 GM in IV 1 EA IV ONE
[2019-05-18 10:16] LABS: HEMATOCRIT 34.2 % (36.0-47.0); HEMOGLOBIN 11.1 g/dl (12.0-15.5); MEAN CORPUSCULAR HEMOGLOBIN 29.7 pg (27.0-33.0); MEAN CORPUSCULAR HGB CONC 32.5 g/dl (32.0-36.5); MEAN CORPUSCULAR VOLUME 91.4 fl (80.0-96.0); PLATELET COUNT, AUTOMATED 151 10^3/uL (150-450); RED BLOOD COUNT 3.74 10^6/uL (4.00-5.40); WHITE BLOOD COUNT 3.6 10^3/uL (4.0-10.0)
[2019-05-18 10:31] LABS: BLOOD UREA NITROGEN 12 MG/DL (7-18); CALCIUM LEVEL 8.5 MG/DL (8.8-10.2); CARBON DIOXIDE LEVEL 22 MEQ/L (21-32); CHLORIDE LEVEL 110 MEQ/L (98-107); CREATININE FOR GFR 0.62 MG/DL (0.55-1.30); GLOMERULAR FILTRATION RATE > 60.0 (>32); GLUCOSE, FASTING 95 MG/DL (70-100); POTASSIUM SERUM 3.9 MEQ/L (3.5-5.1); SODIUM LEVEL 142 MEQ/L (136-145)
== END ==
PROVIDERS: ATTEND Internal Medicine
DX: Z96.659 Presence of unspecified artificial knee joint (principal)

== ENCOUNTER → 2019-05-25 | Outpatient (REF) ==
[2019-05-25 10:54] LABS: HEMATOCRIT 36.9 % (36.0-47.0); HEMOGLOBIN 12.4 g/dl (12.0-15.5); MEAN CORPUSCULAR HGB CONC 33.6 g/dl (32.0-36.5); MEAN CORPUSCULAR VOLUME 92.3 fl (80.0-96.0); PLATELET COUNT, AUTOMATED 190 10^3/uL (150-450); WHITE BLOOD COUNT 4.4 10^3/uL (4.0-10.0)
[2019-05-25 11:25] LABS: NT-PRO BNP 149 PG/ML (<450)
[2019-05-25 12:22] LABS: BLOOD UREA NITROGEN 13 MG/DL (7-18); CALCIUM LEVEL 8.7 MG/DL (8.8-10.2); CARBON DIOXIDE LEVEL 22 MEQ/L (21-32); CHLORIDE LEVEL 106 MEQ/L (98-107); GLOMERULAR FILTRATION RATE > 60.0 (>32); GLUCOSE, FASTING 79 MG/DL (70-100); POTASSIUM SERUM 3.4 MEQ/L (3.5-5.1); SODIUM LEVEL 140 MEQ/L (136-145)
== END ==
PROVIDERS: ATTEND Internal Medicine
DX: Z79.899 Other long term (current) drug therapy (principal); Z98.890 Other specified postprocedural states

== ENCOUNTER 2019-06-04 15:35 | Emergency (ER) | payer MEDICAID, MEDICARE ==
[~2019-06-04] VITALS: Ht 154.9 cm; Wt 59.7 kg
--- NOTE | 2019-06-04 17:59 | REPVR ---
PROCEDURE INFORMATION: Exam: US Duplex Left Lower Extremity Veins, Limited Exam date and time: 06/04/2019 5:24 PM Clinical history: 79 years old, female; Pain; Leg, upper and leg, lower; Prior surgery; Surgery date: <1 month; Surgery type: Left knee replacement 05/10/19; Additional info: Calf pain, S/P knee replacement TECHNIQUE: Imaging protocol: Real-time Duplex ultrasound of the Left Lower Extremity with 2-D talbert scale, color Doppler flow and spectral waveform analysis with image documentation. Limited exam focused on the left lower extremity veins. COMPARISON: No relevant prior studies available. FINDINGS: Left deep veins: Unremarkable. The common femoral, femoral, popliteal and posterior tibial veins are patent without thrombus. Normal compressibility, augmentation response and Doppler waveforms. Left superficial veins: Unremarkable. Saphenofemoral junction is patent without thrombus. Soft tissues: 3 x 0.5 x 2 cm popliteal cyst. IMPRESSION: 1. No sonographic evidence of deep vein thrombosis. 2. 3 x 0.5 x 2 cm popliteal cyst. Electronically signed by: Jarrod Keane On 06/04/2019 17:59:33 PM
[2019-06-04 18:45] VITALS: BP 146/81
== END 2019-06-04 18:47 | disposition home or self-care (01) ==
LOC: M ED 15:35
DX: M25.562 Pain in left knee (principal); M79.662 Pain in left lower leg; F03.90 Unspecified dementia, unspecified severity, without behavioral disturbance, psychotic disturbance, mood disturbance, and anxiety; E03.9 Hypothyroidism, unspecified; E78.5 Hyperlipidemia, unspecified; K21.9 Gastro-esophageal reflux disease without esophagitis; Z79.899 Other long term (current) drug therapy; Z79.890 Hormone replacement therapy

== ENCOUNTER → 2019-06-25 | Outpatient (CLI) | payer MEDICARE ==
[2019-06-25 13:44] LABS: BASO % 0.4 % (0.0-1.0); EOS % 0.4 % (0.0-3.0); HEMATOCRIT 42.6 % (36.0-47.0); HEMOGLOBIN 14.1 g/dl (12.0-15.5); LYMPH # 0.9 10^3/uL (1.5-5.0); LYMPH % 17.3 % (24.0-44.0); MEAN CORPUSCULAR HEMOGLOBIN 31.1 pg (27.0-33.0); MEAN CORPUSCULAR HGB CONC 33.1 g/dl (32.0-36.5); MEAN CORPUSCULAR VOLUME 93.8 fl (80.0-96.0); MONO # 0.3 10^3/uL (0.0-0.8); MONO % 5.8 % (0.0-5.0); NEUTROPHILS # 3.9 10^3/uL (1.5-8.5); NEUTROPHILS % 75.9 % (36.0-66.0); PLATELET COUNT, AUTOMATED 121 10^3/uL (150-450); RED BLOOD COUNT 4.54 10^6/uL (4.00-5.40); WHITE BLOOD COUNT 5.2 10^3/uL (4.0-10.0)
[2019-06-25 15:04] LABS: ERYTHROCYTE SEDIMENTATION RATE 8 mm/hr (0-30)
== END ==
LOC: M LAB 12:25
PROVIDERS: ATTEND Physician Assistant Medical
DX: Z47.1 Aftercare following joint replacement surgery (principal); Z79.899 Other long term (current) drug therapy

== ENCOUNTER 2019-10-31 17:06 | Emergency (ER) | payer MEDICARE ==
[~2019-10-31] VITALS: Ht 154.9 cm; Wt 57.3 kg
[~2019-10-31 17:06] MED LIST changes: -MONT10TA2 PO; +MONT10TA4 PO; +ONDA-83 PO; -ONDA4TAB5 PO
[2019-10-31 19:42] LABS: BASO % 0.5 % (0.0-1.0); EOS % 0.5 % (0.0-3.0); HEMATOCRIT 41.6 % (36.0-47.0); LYMPH # 1.2 10^3/uL (1.5-5.0); LYMPH % 28.4 % (24.0-44.0); MEAN CORPUSCULAR HEMOGLOBIN 30.1 pg (27.0-33.0); MEAN CORPUSCULAR HGB CONC 33.7 g/dl (32.0-36.5); MEAN CORPUSCULAR VOLUME 89.5 fl (80.0-96.0); MONO # 0.2 10^3/uL (0.0-0.8); MONO % 5.5 % (0.0-5.0); NEUTROPHILS # 2.7 10^3/uL (1.5-8.5); NEUTROPHILS % 65.1 % (36.0-66.0); PLATELET COUNT, AUTOMATED 108 10^3/uL (150-450); RED BLOOD COUNT 4.65 10^6/uL (4.00-5.40); WHITE BLOOD COUNT 4.2 10^3/uL (4.0-10.0)
[2019-10-31 20:04] LABS: BLOOD UREA NITROGEN 13 MG/DL (7-18); CALCIUM LEVEL 8.7 MG/DL (8.8-10.2); CARBON DIOXIDE LEVEL 25 MEQ/L (21-32); CHLORIDE LEVEL 111 MEQ/L (98-107); CK-MB VALUE MASS < 1.0 NG/ML (<3.6); CPK CREATINE PHOSPHOKINASE 83 U/L (26-192); CREATININE FOR GFR 0.78 MG/DL (0.55-1.30); GLOMERULAR FILTRATION RATE > 60.0 (>32); GLUCOSE, FASTING 120 MG/DL (70-100); INFLUENZA A AMPLIFICATION NEGATIVE (NEGATIVE); INFLUENZA B AMPLIFICATION NEGATIVE (NEGATIVE); POTASSIUM SERUM 3.8 MEQ/L (3.5-5.1); SODIUM LEVEL 143 MEQ/L (136-145); TROPONIN I 0.02 NG/ML (< 0.10)
--- NOTE | 2019-10-31 21:00 | ECGEPIP ---
[facility] - ED Test Date: 2019-10-31 Pat Name: ELIAS SLATER Department: Room: - Gender: Female Racing Board Marker: CT : 1940 Requested By: FRIEDA Lam Order Number: [id number] Reading MD: Swapnil Rooney Measurements Intervals [place] Rate: 46 P: 36 [place]: 228 QRS: -3 QRSD: 127 T: 56 QT: 559 QTc: 494 Interpretive Statements SINUS BRADYCARDIA WITH FIRST DEGREE AV BLOCK POOR R WAVE PROGRESSION LEFT BUNDLE BRANCH BLOCK SIMILAR TO 04/13/19 Electronically Signed on 10-31-2019 21:00:24 EST by Swapnil Rooney
[2019-10-31 22:43] LABS: MB/CK RELATIVE INDEX 1.33 (< OR =4); TROPONIN I 0.04 NG/ML (< 0.10)
[2019-10-31 23:25] VITALS: BP 150/82
--- NOTE | 2019-11-01 07:25 | ECGEPIP ---
[facility] - ED Test Date: 2019-10-31 Pat Name: ELIAS SLATER Department: Room: - Gender: Female [employer]: er : [id number] Requested By: FRIEDA BRUMFIELD Order Number: [id number] Reading MD: Swapnil Rooney Measurements Intervals [place] Rate: 46 P: 38 SC: 221 QRS: 0 QRSD: 135 T: 49 QT: 570 QTc: 500 Interpretive Statements SINUS BRADYCARDIA WITH FIRST DEGREE AV BLOCK POOR R WAVE PROGRESSION LEFT BUNDLE BRANCH BLOCK SIMILAR TO PRIOR ON SAME DATE Electronically Signed on 11-01-2019 7:25:39 EST by Swapnil Rooney
--- NOTE | 2019-11-01 08:04 | REP ---
CHEST, SINGLE VIEW: There is no evidence of acute infiltrate. No pleural effusion is seen. The heart is normal in size. The mediastinal silhouette is unremarkable. The visualized osseous structures are intact. IMPRESSION: No acute pulmonary disease. Electronically Signed by Anil Velasquez MD 11/01/2019 01:22 P
== END 2019-10-31 23:27 | disposition home or self-care (01) ==
LOC: M ED 17:06
DX: R11.10 Vomiting, unspecified (principal); B34.9 Viral infection, unspecified; R94.31 Abnormal electrocardiogram [ECG] [EKG]; F03.90 Unspecified dementia, unspecified severity, without behavioral disturbance, psychotic disturbance, mood disturbance, and anxiety; K21.9 Gastro-esophageal reflux disease without esophagitis; Z79.899 Other long term (current) drug therapy

== ENCOUNTER → 2019-12-23 | Outpatient (CLI) | payer MEDICARE, OTHER ==
[2019-12-23 11:27] LABS: BASO % 0.4 % (0.0-1.0); EOS # 0.1 10^3/uL (0.0-0.5); EOS % 1.1 % (0.0-3.0); HEMATOCRIT 40.4 % (36.0-47.0); HEMOGLOBIN 13.4 g/dl (12.0-15.5); LYMPH # 1.7 10^3/uL (1.5-5.0); LYMPH % 36.4 % (24.0-44.0); MEAN CORPUSCULAR HEMOGLOBIN 29.3 pg (27.0-33.0); MEAN CORPUSCULAR HGB CONC 33.2 g/dl (32.0-36.5); MEAN CORPUSCULAR VOLUME 88.2 fl (80.0-96.0); MONO # 0.3 10^3/uL (0.0-0.8); MONO % 6.8 % (0.0-5.0); NEUTROPHILS # 2.5 10^3/uL (1.5-8.5); NEUTROPHILS % 55.1 % (36.0-66.0); PLATELET COUNT, AUTOMATED 105 10^3/uL (150-450); RED BLOOD COUNT 4.58 10^6/uL (4.00-5.40); WHITE BLOOD COUNT 4.6 10^3/uL (4.0-10.0)
[2019-12-23 11:50] LABS: ERYTHROCYTE SEDIMENTATION RATE 4 mm/hr (0-30)
== END ==
LOC: M LAB 10:41
PROVIDERS: ATTEND Orthopaedic Surgery
DX: Z96.652 Presence of left artificial knee joint (principal)

== ENCOUNTER → 2020-01-17 | Outpatient (CLI) | payer MEDICARE ==
--- NOTE | 2020-01-17 15:13 | REP ---
TRIPLE PHASE BONE SCAN OF THE KNEES: Following the administration of 22 mCi of technetium 99m MDP, patient's knees are imaged in the flow phase showing symmetrical blood flow. Immediate blood pool and 3-hour delayed images are performed in multiple projections. Photopenic area in the region of the left knee joint is compatible with metallic prosthesis in place. There is minimal increased blood pooling and mild increased osseous uptake in the distal femur and proximal tibia along the interface with the adjacent prosthetic components. This is likely normal postsurgical uptake. There is no compelling scintigraphic evidence of infection. On the right, there is arthritic periarticular uptake in the medial knee joint and patellofemoral joint. Electronically Signed by Anil Velasquez MD 01/17/2020 07:31 P
== END ==
LOC: M RAD 08:26
PROVIDERS: ATTEND Orthopaedic Surgery
DX: Z96.652 Presence of left artificial knee joint (principal); M17.11 Unilateral primary osteoarthritis, right knee
CPT/HCPCS: 78315; A9503

== ENCOUNTER → 2020-02-01 | Outpatient (CLI) | payer MEDICARE ==
--- NOTE | 2020-02-01 12:55 | REPMRS ---
Patient History The patient states she has not had a clinical breast exam in over a year. No known family history of cancer. Benign FNA biopsy of the left breast, 1965. 3D TOMOSYNTHESIS WAS PERFORMED. [facility] lifetime [facility] for breast cancer [facility] 1.4%. CONCHITA ARTEAGA B. Digital Woman Screen Mammo: February 01, 2020 - Exam #: [id number] Bilateral CC and MLO view(s) were taken. Technologist: Sanaz Stevens, Technologist Prior study comparison: October 27, 2018, bilateral digital woman screen mammo performed at [facility]. September 12, 2017, digital woman screen mammo performed at [facility]. FINDINGS: The breast tissue is heterogeneously dense. This may lower the sensitivity of mammography. There has been no change in the appearance of the mammogram from the prior studies. There is a moderate amount of residual fibroglandular tissue which is fairly symmetric. There is no interval development of dominant mass, areas of architectural distortion, or clustered microcalcification typical of malignancy. Assessment: BI-RADS/ACR category 1 mammogram. Negative Mammogram. Recommendation Routine screening mammogram in 1 year (for women over age 40). This mammogram was interpreted with the aid of an FDA-approved computer-aided dectection system. Electronically Signed By: Anil Velasquez MD 02/01/20 [id number]
== END ==
LOC: M WHC 11:37
PROVIDERS: ATTEND Nurse Practitioner
DX: Z12.31 Encounter for screening mammogram for malignant neoplasm of breast (principal)

== ENCOUNTER → 2021-02-02 | Outpatient (CLI) | payer MEDICARE ==
[~2021-02-02] MED LIST changes: +ASPI-569 PO; -ASPI81TA85 PO; +ASPI81TA86 PO; -ASPI81TAEC PO; +MONT10TA10 PO; -MONT10TA4 PO
--- NOTE | 2021-02-02 12:43 | REPMRS ---
Patient History The patient states she had a clinical breast exam in 12/2020. Patient is postmenopausal. No known family history of cancer. Benign FNA biopsy of the left breast, 1965. No Hormone Replacement Therapy Patient states no breast complaints today. Patient has signed MRS History Sheet. Digital Woman Screen Mammo: February 02, 2021 - Exam #: [id number] Bilateral CC and MLO view(s) were taken. Technologist: Matilda Oropeza, Technologist Prior study comparison: February 01, 2020, bilateral digital woman screen mammo performed at [facility]. October 27, 2018, bilateral digital woman screen mammo performed at [facility]. FINDINGS: There are scattered fibroglandular densities. Screening. Digital screening (2D) mammography was performed bilaterally in the CC and MLO projections. Additionally, breast tomosynthesis (3D mammography) was performed bilaterally in the CC and MLO projections. Todays exam was compared to the prior exams. By history, the patient has no complaints of a palpable breast abnormality or other significant breast complaints. The breasts are unchanged in size and shape. There are no arabella-soft tissue densities or spiculated masses. There is no internal architectural distortion. Once again, stable benign appearing calcifications are seen.There are no suspicious arabella-calcific clusters. Skin thickening or nipple retraction is not present. IMPRESSION: BI-RADS Category 2- Benign Findings. There is no evidence of malignant alteration of the breasts. Followup examination recommended in one year. The Volpara volumetric breast density category is B, there are scattered areas of fibroglandular density. This mammogram was [facility] with the [facility] FDA approved computer aided detection system for mammography. The lifetime Tyrer-Cuzick score is 1.2 % Negative x-ray reports should not delay surgical consultation if a dominant or clinically suspicious mass is present. Not all breast cancers can be identified by mammography. Therefore, we recommend that you continue to perform regular breast self-examination and physical examination and then promptly contact your physician of any concerns or changes. Adenosis and dense breasts may obscure an underlying neoplasm. Assessment: BI-RADS/ACR category 2 mammogram. Benign Findings. Recommendation Routine screening mammogram of both breasts in 1 year. Electronically Signed By: Kyle Gruber DO 02/02/21 [id number]
== END ==
LOC: M WHC 11:51
PROVIDERS: ATTEND Nurse Practitioner
DX: Z12.31 Encounter for screening mammogram for malignant neoplasm of breast (principal)

== ENCOUNTER 2022-12-28 02:29 | Emergency (ER) | payer MEDICAID, MEDICARE ==
[~2022-12-28] VITALS: Ht 154.9 cm; Wt 62.8 kg
[~2022-12-28 02:29] MED LIST changes: +DONE-1 PO; -DONETAB6 PO; -MONT10TA10 PO; +MONT10TA97 PO
[2022-12-28 02:31] VITALS: BP 165/92
== END 2022-12-28 04:40 | disposition left against medical advice (07) ==
LOC: M ED 02:29
DX: Z53.21 Procedure and treatment not carried out due to patient leaving prior to being seen by health care provider (principal)

== ENCOUNTER → 2023-05-16 | Outpatient (CLI) | payer MEDICARE | LOC: M WUC 12:37 | PROVIDERS: ATTEND Family Medicine | DX: M17.11 Unilateral primary osteoarthritis, right knee (principal) ==

== ENCOUNTER 2023-10-31 06:52 | Emergency (ER) | payer MEDICARE, MEDICAID ==
[~2023-10-31] VITALS: Ht 162.6 cm; Wt 63.1 kg
[~2023-10-31 06:52] MED LIST changes: +AMLO1TAB24 PO; +ASPI-615 PO; +CEFD1CAP9 PO; +CVS10CAP7 PO; +D200CAP3 PO; -KLON0.5T PO; +KLON0.5T8 PO; +MECL-86 PO; +MEMA10TA19 PO
[2023-10-31 08:00] LABS: BASO % 0.3 % (0.0-1.0); EOS % 1.2 % (0.0-3.0); HEMATOCRIT 41.5 % (36.0-47.0); HEMOGLOBIN 13.8 g/dl (12.0-15.5); LYMPH # 0.9 10^3/uL (1.5-5.0); LYMPH % 27.4 % (24.0-44.0); MEAN CORPUSCULAR HEMOGLOBIN 28.7 pg (27.0-33.0); MEAN CORPUSCULAR HGB CONC 33.3 g/dl (32.0-36.5); MEAN CORPUSCULAR VOLUME 86.3 fl (80.0-96.0); MONO # 0.2 10^3/uL (0.0-0.8); NEUTROPHILS # 2.2 10^3/uL (1.5-8.5); NEUTROPHILS % 63.8 % (36.0-66.0); RED BLOOD COUNT 4.81 10^6/uL (4.00-5.40); WHITE BLOOD COUNT 3.4 10^3/uL (4.0-10.0)
[2023-10-31 08:25] LABS: CK-MB VALUE MASS < 1.0 NG/ML (<3.6); PLATELET COUNT, AUTOMATED 97 10^3/uL (150-450)
[2023-10-31 08:26] LABS: ETHYL ALCOHOL (ETHANOL) < 0.003 % (0.000-0.010)
[2023-10-31 08:27] LABS: CPK CREATINE PHOSPHOKINASE 71 U/L (34-145)
[2023-10-31 08:28] LABS: ALBUMIN 3.7 G/DL (3.2-5.2); ALKALINE PHOSPHATASE 102 U/L (46-116); ALT/SGPT 49 U/L (7.0-40); AST/SGOT 44 U/L (<34); BILIRUBIN,DIRECT 0.2 MG/DL (<0.4); BILIRUBIN,TOTAL 0.5 MG/DL (0.3-1.2); BLOOD UREA NITROGEN 13 MG/DL (9-23); CALCIUM LEVEL 8.4 MG/DL (8.3-10.6); CARBON DIOXIDE LEVEL 25 MMOL/L (20-31); CHLORIDE LEVEL 109 MMOL/L (98-107); CREATININE FOR GFR 0.74 MG/DL (0.55-1.30); GLOMERULAR FILTRATION RATE > 60.0 (>32); GLUCOSE, FASTING 89 MG/DL (74-106); POTASSIUM SERUM 3.9 MMOL/L (3.5-5.1); SALICYLATE LEVEL < 3.0 MG/DL (<30); SODIUM LEVEL 141 MMOL/L (136-145); THYROID STIMULATING HORMONE 5.212 uIU/ML (0.55-4.78)
[2023-10-31 11:30] VITALS: BP 149/67
[2023-10-31 11:31] VITALS: TEMP 97.6; O2SAT 98
== END 2023-10-31 11:45 | disposition home or self-care (01) ==
LOC: M ED 06:52
DX: I10 Essential (primary) hypertension (principal); R00.1 Bradycardia, unspecified; I44.4 Left anterior fascicular block; I44.0 Atrioventricular block, first degree; E03.9 Hypothyroidism, unspecified; Z87.891 Personal history of nicotine dependence; Z79.82 Long term (current) use of aspirin; Z79.02 Long term (current) use of antithrombotics/antiplatelets; Z79.811 Long term (current) use of aromatase inhibitors; Z79.899 Other long term (current) drug therapy

== ENCOUNTER → 2024-10-11 | Outpatient (REF) | payer MEDICARE, MEDICAID ==
[~2024-10-11] MED LIST changes: +MEMA10TA PO; -MEMA10TA19 PO; +MONT5TAB7 PO; -SING5CHW23 PO
[2024-10-11 19:45] LABS: APPEARANCE, URINE HAZY (CLEAR); BACTERIA, URINE AUTO NEGATIVE (NEGATIVE); BILIRUBIN, URINE AUTO NEGATIVE (NEGATIVE); BLOOD, URINE BLOOD NEGATIVE (NEGATIVE); COLOR, URINE YELLOW (YELLOW); GLUCOSE, URINE (UA) AUTO NEGATIVE (NEGATIVE); KETONE, URINE AUTO NEGATIVE (NEGATIVE); LEUKOCYTE ESTERASE, URINE AUTO NEGATIVE (NEGATIVE); MUCUS, URINE SMALL (NEGATIVE); NITRITE, URINE AUTO NEGATIVE (NEGATIVE); PROTEIN, URINE AUTO NEGATIVE (NEGATIVE); RBC, URINE AUTO 0 /HPF (0-3); SPECIFIC GRAVITY URINE AUTO 1.028 (1.002-1.035); SQUAMOUS EPITHELIAL CELL UR AU 2 /HPF (0-6); WBC, URINE AUTO 1 /HPF (0-3)
[2024-10-11 19:47] LABS: BASO % 0.8 % (0.0-1.0); EOS # 0.1 10^3/uL (0.0-0.5); EOS % 1.4 % (0.0-3.0); HEMATOCRIT 41.7 % (36.0-47.0); HEMOGLOBIN 13.6 g/dl (12.0-15.5); LYMPH # 1.3 10^3/uL (1.5-5.0); LYMPH % 36.2 % (24.0-44.0); MEAN CORPUSCULAR HEMOGLOBIN 29.3 pg (27.0-33.0); MEAN CORPUSCULAR HGB CONC 32.6 g/dl (32.0-36.5); MEAN CORPUSCULAR VOLUME 89.9 fl (80.0-96.0); MONO # 0.3 10^3/uL (0.0-0.8); MONO % 7.4 % (2.0-8.0); NEUTROPHILS % 54.2 % (36.0-66.0); PLATELET COUNT, AUTOMATED 103 10^3/uL (150-450); RED BLOOD COUNT 4.64 10^6/uL (4.00-5.40)
[2024-10-11 20:32] LABS: ALBUMIN 3.5 G/DL (3.2-5.2); ALKALINE PHOSPHATASE 98 U/L (35-104); ALT/SGPT 29 U/L (7.0-40); AST/SGOT 27 U/L (<34); BILIRUBIN,TOTAL 0.4 MG/DL (0.3-1.2); BLOOD UREA NITROGEN 18 MG/DL (9-23); CALCIUM LEVEL 8.4 MG/DL (8.3-10.6); CARBON DIOXIDE LEVEL 28 MMOL/L (20-31); CHLORIDE LEVEL 111 MMOL/L (98-107); CREATININE FOR GFR 0.84 MG/DL (0.55-1.30); GLOMERULAR FILTRATION RATE > 60.0 (>32); GLUCOSE, FASTING 107 MG/DL (74-106); POTASSIUM SERUM 3.9 MMOL/L (3.5-5.1); SODIUM LEVEL 145 MMOL/L (136-145); TOTAL PROTEIN 5.9 G/DL (5.7-8.2)
[2024-10-11 20:35] LABS: THYROID STIMULATING HORMONE 1.938 uIU/ML (0.55-4.78)
[2024-10-12 06:56] LABS: WHITE BLOOD COUNT 3.7 10^3/uL (4.0-10.0)
== END ==
LOC: M LAB REF 19:15
PROVIDERS: ATTEND Family Medicine
DX: I10 Essential (primary) hypertension (principal); F41.1 Generalized anxiety disorder; E03.9 Hypothyroidism, unspecified

== ENCOUNTER → 2025-05-10 | Outpatient (CLI) | payer MEDICARE, MEDICAID ==
[2025-05-10 19:19] LABS: APPEARANCE, URINE CLEAR (CLEAR); BACTERIA, URINE AUTO NEGATIVE (NEGATIVE); BASO # 0.0 10^3/uL (0.0-0.2); BASO % 0.9 % (0.0-1.0); BILIRUBIN, URINE AUTO NEGATIVE (NEGATIVE); BLOOD, URINE BLOOD NEGATIVE (NEGATIVE); EOS # 0.1 10^3/uL (0.0-0.5); EOS % 1.5 % (0.0-3.0); GLUCOSE, URINE (UA) AUTO NEGATIVE (NEGATIVE); KETONE, URINE AUTO NEGATIVE (NEGATIVE); LEUKOCYTE ESTERASE, URINE AUTO NEGATIVE (NEGATIVE); LYMPH # 1.2 10^3/uL (1.5-5.0); LYMPH % 24.9 % (24.0-44.0); MONO # 0.4 10^3/uL (0.0-0.8); MONO % 7.4 % (2.0-8.0); MUCUS, URINE SMALL (NEGATIVE); NEUTROPHILS # 3.1 10^3/uL (1.5-8.5); NEUTROPHILS % 65.1 % (36.0-66.0); NITRITE, URINE AUTO NEGATIVE (NEGATIVE); PLATELET COUNT, AUTOMATED 124 10^3/uL (150-450); PROTEIN, URINE AUTO NEGATIVE (NEGATIVE); RBC, URINE AUTO 0 /HPF (0-3); SPECIFIC GRAVITY URINE AUTO 1.013 (1.002-1.035); SQUAMOUS EPITHELIAL CELL UR AU 0 /HPF (0-6); UROBILINOGEN, URINE AUTO 4.0 mg/dL (0.0-2.0); WBC, URINE AUTO 0 /HPF (0-3)
[2025-05-10 19:42] LABS: ALT/SGPT 45.0 U/L (7.0-40); AST/SGOT 39.0 U/L (<34); CALCIUM LEVEL 8.8 MG/DL (8.3-10.6); CARBON DIOXIDE LEVEL 28.0 MMOL/L (20-31); CHLORIDE LEVEL 106.0 MMOL/L (98-107); CHOLESTEROL LEVEL 157.0 MG/DL (<200); CHOLESTEROL RISK RATIO 2.69 (<5); CREATININE FOR GFR 0.81 MG/DL (0.55-1.30); GLOMERULAR FILTRATION RATE 70.7 (>32); LDL CHOLESTEROL 51.2 MG/DL (<100); NON-HDL-C 98.8 MG/DL; POTASSIUM SERUM 4.1 MMOL/L (3.5-5.1); SODIUM LEVEL 144.0 MMOL/L (136-145); TRIGLYCERIDES LEVEL 238.0 MG/DL (<150)
== END ==
LOC: M WUC 15:25
PROVIDERS: ATTEND Family Medicine
DX: I10 Essential (primary) hypertension (principal); E03.9 Hypothyroidism, unspecified; E78.5 Hyperlipidemia, unspecified; G30.0 Alzheimer's disease with early onset